=== PATIENT | female | born 1985 | race Caucasian/White ===

== ENCOUNTER 2020-02-26 22:50 | Emergency (ER) | payer BC, OTHER, SELFPAY ==
--- NOTE | ~2020-02-26 | CT_ITS ---
EXAMINATION: CTA chest PE protocol EXAM DATE: 02/27/2020 01:27 INDICATION: Midsternal chest pain and shortness of breath. TECHNIQUE: Spiral CTA of the chest (pulmonary arteries) was performed with 100 cc Omnipaque 350 intr avenous contrast injection. Images were acquired during the arterial phase. Coronal maximum intens ity projection 3D-reconstructions were created by the technologist on dedicated workstation. Axial, coronal and sagittal reformatted images were reviewed. Initial scan was essentially nondiagnostic for pulmonary embolism due to bolus timing, patient was reinjected and rescanned with another injection of 100 cc Omnipaque 350 solution for a total of 200 cc. The dose-length product (DLP) for this examin ation was 1028.46 mGy-cm. The exposure was tailored according to patient size (auto mA exposure con trol), and iterative reconstruction (ASIR) was used as additional dose reduction technique. There is no prior study for comparison. FINDINGS: Pulmonary arteries are well opacified and without intraluminal filling defects. No thora cic aortic dissection. The lungs are clear. There are no pleural or pericardial effusions. Trach eobronchial tree is patent. There is no mediastinal, hilar or axillary lymphadenopathy. There is no pneumothorax. Heart normal in size. No evidence of coronary arterial calcification. Upper abd omen is unremarkable. There is thoracic spondylosis without osteoblastic or osteolytic lesions iden tified. IMPRESSION: 1. No pulmonary emboli or acute findings. Reviewed, dictated and finalized at location A.
[2020-02-26 22:52] VITALS: BP 130/82; PULSE 111; RESP 20; TEMP 36.7; O2SAT 100
[2020-02-26 23:33] LABS: Basophils Percent Auto 0.3 % (0.2-1.2); Eosinophils Absolute Auto 0.1 K/mm3 (0-0.3); Eosinophils Percent Auto 1.2 % (0-4.4); Hemoglobin 12.9 g/dL (12.0-15.0); Immature Granulocyte Absolute 0.03 K/mm3 (0.00-0.031); Immature Granulocyte Percent A 0.3 % (0-0.5); Lymphocytes Absolute Auto 4.37 K/mm3 (0.9-3.2); Lymphocytes Percent Auto 38.9 % (18.3-44.2); Mean Corpuscular HGB Conc 33.9 g/dl (32-36); Mean Corpuscular Hemoglobin 28.1 pg (26-34); Mean Corpuscular Volume 82.8 fl (80-100); Mean Platelet Volume 9.8 fl (7.4-10.4); Monocytes Percent Auto 9.2 % (2.6-8.5); Neutrophils Absolute Auto 5.6 K/mm3 (1.3-6.7); Neutrophils Percent Auto 50.1 % (45.5-73.1); Platelet Count Result 273 k/mm3 (150-375); Red Blood Count 4.59 M/mm3 (4.2-5.4); Red Cell Distribution Width 12.5 % (11.5-14.5); White Blood Count 11.2 K/mm3 (4.5-10.0)
[2020-02-26] MEDS: MORPHINE SULFATE 4 MG/ML INJ IV PUSH (23:43)
[2020-02-26 23:45] LABS: Anion Gap 9 mmol/L (8-16); Blood Urea Nitrogen 14 mg/dL (7-17); Carbon Dioxide 24 mmol/L (22-30); Chloride 103 mmol/L (98-107); Estimated CRCL calculation 80 ml/min; Estimated Glomerular Filt Rate > 60; Glucose 115 mg/dL (65-105); Potassium 3.5 mmol/L (3.4-5.0); Sodium 136 mmol/L (137-145)
[2020-02-26 23:58] LABS: NT Pro B Type Natriuretic Pept 37 PG/ML (5-100); Troponin I < 0.012 ng/mL (0.000-0.034)
[2020-02-27 00:28] LABS: Add Urine Microscopic? NO; Appearance Urine Clear (Clear); Bacteria Urine Trace /hpf; Bilirubin Urine Negative (Negative); Blood Urine Negative (Negative); Color Urine Yellow (Yellow); Glucose Urine UA Negative (Negative); Ketones Urine Negative (Negative); Leukocyte Esterase Ur Negative LEU/UL (Negative); Mucus Urine Rare /lpf; Nitrate Urine Negative (Negative); Protein Urine Negative (Negative); RBC Urine 0-2 /hpf (0-2); Squamous Epithelial Cell Urine Moderate /hpf (Few); Urobilinogen Urine Negative mg/dL (<2.0); WBC Urine 0-3 /hpf
[2020-02-27 00:54] VITALS: BP 121/69; PULSE 89; RESP 18; O2SAT 99
--- NOTE | 2020-02-27 01:27 | ED.CHESTPAIN ---
HPI - Chest Pain General Chief Complaint: Chest Pain Stated Complaint: chest pain History of Present Illness HPI narrative: Patient is a 34-year-old female who presents the ER with sudden onset left-sided chest pain. Anterior chest wall inferior to the breast. Is worse with deep breath. Is not worsened by movement. No worsening with palpation. Reports she was lying in bed when symptoms began. No known trauma or injury. Denies runny nose/sore throat/productive cough. No history of coronary disease. Related Data Home Medications Medication Instructions Recorded Confirmed lorazepam 1 mg tablet 1 mg PO TID PRN 06/30/19 02/26/20 tramadol 50 mg tablet 50 mg PO Q6H PRN 06/30/19 02/26/20 Allergies Allergy/AdvReac Type Severity Reaction Status Date / Time Penicillins Allergy Unknown Unknown Verified 02/26/20 23:47 Review of Systems Review of Systems: All systems reviewed & are unremarkable except as noted in HPI and below Constitutional: Constitutional: Denies chills and Denies fever(s) ENT: Denies nasal congestion and Denies sore throat Cardiovascular: Cardiovascular: Reports chest pain, Denies rapid heart rate and Denies radiating jaw, neck or arm pain Respiratory: Respiratory: Denies cough, Denies dyspnea and Denies wheezing Comments: Pain with deep breath Gastrointestinal: Gastrointestinal: Denies abdominal pain, Denies nausea and Denies vomiting PMFSH Past Medical History Medical History (Updated 02/27/20 @ 02:51 by Danny Diaz MD) Anxiety Essential (primary) hypertension Mixed hyperlipidemia Surgical History Surgical History (Updated 02/27/20 @ 01:31 by Danny Diaz MD) History of appendectomy History of section History of tonsillectomy Social History Social History Smoking status: Never smoker Alcohol intake: current Gender identity (if verbalized by the patient): Female Exam Narrative: Exam Narrative: GENERAL: Well-appearing, well-nourished, and in mild distress. HEAD: Normocephalic, atraumatic. ENT: Mucous membranes moist. CHEST: Clear to auscultation. No respiratory distress. HEART: Tachycardic and regular. Normal peripheral pulses. ABDOMEN: Soft, nontender, nondistended. EXTREMITIES: Normal range of motion. No edema. SKIN: Warm, dry, no rash. NEURO: Alert and oriented x3. PSYCH: Normal mood and affect. Course Course Emergency Course: Patient informed of results. Chest pain-free. No PE. Troponin negative x2. Vital Signs Vital signs: Vital Signs Temperature 98.0 F 02/26/20 22:52 Pulse Rate 111 H 02/26/20 22:52 Respiratory Rate 20 02/26/20 22:52 Blood Pressure 130/82 02/26/20 22:52 Pulse Oximetry 100 02/26/20 22:52 Temperature 98.0 F 02/26/20 22:52 Pulse Rate 89 02/27/20 00:54 Respiratory Rate 18 02/27/20 00:54 Blood Pressure 121/69 02/27/20 00:54 Pulse Oximetry 99 02/27/20 00:54 MDM - Chest Pain Lab Data Result diagrams: 02/26/20 23:25 02/26/20 23:25 Labs: Lab Results 02/26/20 02/26/20 02/27/20 Range/Units 23:25 23:25 00:01 WBC 11.2 H (4.5-10.0) K/mm3 RBC 4.59 (4.2-5.4) M/mm3 Hgb 12.9 (12.0-15.0) g/dL Hct 38.0 (37.0-47.0) % MCV 82.8 (80-100) fl MCH 28.1 (26-34) pg MCHC 33.9 (32-36) g/dl RDW 12.5 (11.5-14.5) % Plt Count 273 (150-375) k/mm3 MPV 9.8 (7.4-10.4) fl Immature Gran % (Auto) 0.3 (0-0.5) % Neut % (Auto) 50.1 (45.5-73.1) % Lymph % (Auto) 38.9 (18.3-44.2) % Sierra % (Auto) 9.2 H (2.6-8.5) % Eos % (Auto) 1.2 (0-4.4) % Baso % (Auto) 0.3 (0.2-1.2) % Lymph # (Auto) 4.37 H (0.9-3.2) K/mm3 Sierra # (Auto) 1.0 H (0.1-0.6) K/mm3 Eos # (Auto) 0.1 (0-0.3) K/mm3 Baso # (Auto) 0.0 (0.0-0.1) K/mm3 Abs Immat Gran (auto) 0.03 (0.00-0.031) K/mm3 Absolute Neuts (auto) 5.6 (1.3-6.7) K/mm3 Absolute Nucleated RBC 0.0 (0
[2020-02-27 02:43] LABS: Troponin I < 0.012 ng/mL (0.000-0.034)
[2020-02-27 03:33] VITALS: BP 121/74; PULSE 82; RESP 18; O2SAT 98
== END 2020-02-27 03:36 | disposition home or self-care (01) ==
PROVIDERS: Emergency Provider Emergency Medicine; PCP Family Medicine
DX: R07.89 Other chest pain (principal); F41.9 Anxiety disorder, unspecified; I10 Essential (primary) hypertension; E78.2 Mixed hyperlipidemia
CPT/HCPCS: 36415; 71275; 80048; 81003; 83880; 84484; 85025; 96374; 99284; J2270; Q9967

== ENCOUNTER 2020-05-02 13:35 | Emergency (ER) | payer BC, OTHER, SELFPAY ==
--- NOTE | ~2020-05-02 | XR_ITS ---
XR hip RT 2V w AP pelvis 05/02/2020 14:52 INDICATION: Right hip pain. PROCEDURE: AP pelvis and 2 views right hip COMPARISON: CT dated 09/30/2016. FINDINGS: Fracture, dislocation or subluxation is not identified. There is a loose body lateral to th e right hip which was present on prior CT examination in 2017. Sacral foramen are symmetric. Pelvic r ings are intact. The soft tissues appear within normal limits. No foreign bodies are identified. IMPRESSION: 1: NO ACUTE BONE OR JOINT ABNORMALITY IDENTIFIED. Reviewed, dictated and finalized at location A. EM SUPPORT ADMINISTRATOR
[2020-05-02 13:39] VITALS: BP 123/72; PULSE 102; RESP 18; TEMP 36.6; O2SAT 99
--- NOTE | 2020-05-02 14:12 | ED.BACK ---
HPI - Back Pain/Injury General Chief Complaint: Back Pain/Injury Stated Complaint: hip pain Time Seen by Provider: 05/02/20 14:02 Source: RN notes reviewed History of Present Illness HPI Narrative: Patient presents to emergency department from home for right leg pain. Patient states that she has a history of sciatica for the past 5 years. She states she was sitting in a chair and was having aching in her right hip when she had jumped out of the chair she thought her daughter got outside. States she did she got to the top of the stairs she had had a searing pain going her right buttocks region into her right groin with continued pain in the right hip. Patient states she tried taking ibuprofen at home with no relief. States that she is had no fevers or chills abdominal pain numbness or tingling in the extremity bowel or bladder incontinence or any other symptoms. Denies any direct trauma or injury Related Data Allergies Allergy/AdvReac Type Severity Reaction Status Date / Time Penicillins Allergy Unknown Unknown Verified 05/02/20 13:46 Review of Systems Review of Systems: Narrative: Gen.: Denies fevers or chills ENT: Denies congestion Respiratory: Denies shortness of breath or cough CV: Denies chest pain or palpitations GI: Denies abdominal pain nausea, emesis or diarrhea denies bowel or bladder incontinence Musculoskeletal: See HPI Neuro: Denies numbness, tingling, weakness or focal weakness Skin: Denies rash Except as documented, all other systems reviewed and negative PMFSH Past Medical History Medical History Anxiety Essential (primary) hypertension Mixed hyperlipidemia Surgical History Surgical History (Updated 02/27/20 @ 01:31 by Danny Diaz MD) History of appendectomy History of section History of tonsillectomy Social History Social History Smoking status: Never smoker Alcohol intake: current Gender identity (if verbalized by the patient): Female Exam Narrative: Exam Narrative: APPEARANCE: No acute distress, nontoxic, resting in bed Eyes: EOMI HEENT: Normocephalic, atraumatic, CV: Regular rate and rhythm without murmur RESPIRATORY: No respiratory distress. Clear to auscultation bilaterally. Abdomen: Soft and nontender, no rebound or guarding no tenderness in right lower quadrant MUSCULOSKELETAl: Moves all extremities, no clubbing cyanosis or edema no tenderness to palpation over the anterior lateral hip, pain with active flexion of the hip greater than 30 degrees with passive range of motion no pain with flexion of the hip but when the hip is flexed to greater than 45 degrees passively and the leg is brought back down pain in the right anterior and lateral hip patient is able to hold up the leg on her own the right lower extremity is neurovascular intact with a dorsalis pedis pulse of 2+ no overlying erythema in the right groin no hernia Back: No midline lumbar tenderness to palpation or step-off, tender to palpation over right piriformis region NEURO: Awake and alert. Following commands, speech normal, no focal deficits, muscle strength 5 out of 5 bilateral lower extremities, bilateral patellar reflex 2+ SKIN:: Warm, dry. Normal Color no rash or lesions Course Course Emergency Course: Patient is able to walk on the leg in her room but notes pain with ambulation Discussed with patient results of workup and diagnosis. Discussed need for follow-up with primary care, proper use of medication, and reasons to return to the emergency department. Patient understands and agrees to current treatment plan Vital Signs Vital signs: Vital Signs Temperature 97.9 F 05/02/20 13:39 Pulse Rate 102 H 05/02/20 13:39 Respiratory Rate 18 05/02/20 13:39 Blood Pressure 123/72 05/02/20 13:39 Pulse Oximetry 99 05/02/20 13:39 Temperature 97.9 F 05/02/20 13:39 Pulse Rate 102 H
[2020-05-02] MEDS: MORPHINE SULFATE (*CRX) 4 MG/ML INJ IM (14:17)
== END 2020-05-02 15:50 | disposition home or self-care (01) ==
PROVIDERS: Emergency Provider Emergency Medicine; PCP Family Medicine
DX: M54.31 Sciatica, right side (principal); E78.2 Mixed hyperlipidemia; I10 Essential (primary) hypertension
CPT/HCPCS: 73502; 96372; 99283; J2270

== ENCOUNTER → 2021-02-03 10:43 | Outpatient (CLI) | payer BC, OTHER, SELFPAY ==
--- NOTE | ~2021-02-03 | MR_ITS ---
EXAMINATION: MR knee LT wo con DATE: 02/03/2021 12:05 INDICATION: Left knee pain post fall 3 years prior TECHNIQUE: Magnetic resonance imaging (MRI) of the left knee was performed without intravenous contra st. Sequences included coronal PD-weighted FSE, coronal PD-weighted FS FSE, sagittal T2-weighted FSE , sagittal PD-weighted FS FSE and axial PD weighted fat saturated FSE. COMPARISON: Left knee radiographs dated 07/01/2019 FINDINGS: Medial compartment: Medial meniscus is normal. Deep, likely full/near full-thickness chondral fissuring with underlying s ubarticular edema at the anterior weightbearing medial femoral condyle. Cartilage at the medial tibia l plateau and along the central to posterior weightbearing medial femoral condyle remains normal. Lateral compartment: Lateral meniscus is normal. Articular cartilage is normal. Patellofemoral compartment: Distal . Chondral fissure involving greater than 50% the cartilage thickness but without degenerative subchondral changes at the central aspect of the medial patellar facet. Chondral ulceration and deep fissuring with underlying cortical irregularity and minimal cortical edema at the inferior aspect of the medial trochlea. Cartilage at the lateral side of the patellofemoral compartment is normal. Ligaments and tendons: Anterior and posterior cruciate ligaments are normal. The medial collateral ligament and fibular jazmín ateral ligament complex are normal. The extensor mechanism is normal. The visualized medial and later al hamstring tendons as well as the iliotibial band are normal. Fluid: Small left knee joint effusion. No loose osteochondral bodies identified. Osseous/other: No fracture or pathologic marrow replacing process. Small bone island at the proximal tibia. IMPRESSION: 1. 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 Moderate to high-grade chondromalacia at the medial patellar facet. 2. Normal menisci, stabilizing ligaments and tendons . 3. Small likely reactive left knee joint effusion. Reviewed, dictated and finalized at location A. IMPRESSION: 1. 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 Moderate to high-grade chondroma lacia at the medial patellar facet. 2. Normal menisci, stabilizing ligaments and tendons . 3. Small likely reactive left knee joint effusion.
== END ==
PROVIDERS: PCP Family Medicine; Visit Provider Nurse Practitioner Family
DX: M25.562 Pain in left knee (principal); M25.462 Effusion, left knee
CPT/HCPCS: 73721

== ENCOUNTER 2021-09-29 08:50 | Outpatient (CLI) | payer BC, OTHER, SELFPAY ==
--- NOTE | 2021-09-29 | ECG_ITS ---
Measurements Intervals [place] Rate: 73 P: 52 OR: 146 QRS: 20 QRSD: 86 T: -1 QT: 374 QTc: 413 Interpretive Statements SINUS RHYTHM NORMAL ECG NO PREVIOUS ECG AVAILABLE FOR COMPARISON Electronically Signed On 09-29-2021 15:41:56 CDT by Sancho Burkett M.D.
== END 2021-09-29 08:51 | disposition home or self-care (01) ==
LOC: ANHCARD 08:53
PROVIDERS: PCP Family Medicine; Visit Provider Obstetrics & Gynecology
DX: R00.2 Palpitations (principal)
CPT/HCPCS: 93005

== ENCOUNTER 2021-10-05 13:23 | Outpatient (CLI) | payer BC, OTHER, SELFPAY ==
--- NOTE | ~2021-10-05 | XR_ITS ---
EXAM: XR lumbar spine 2-3V HISTORY: M54.50 - Low back pain, unspecified, radiates to both legs COMPARISON: X-ray lumbar spine 03/27/2016. FINDINGS: 5 nonrib-bearing lumbar-type vertebral bodies with intact pedicles. Vertebral body heights and disc spaces are maintained. No fracture or traumatic malalignment. No lytic or blastic lesion. M ild facet hypertrophy in the lower lumbar spine. Normal sacroiliac joints. IMPRESSION: Mild lower lumbar facet arthropathy. Reviewed, dictated and finalized at location K.
== END 2021-10-05 13:24 | disposition home or self-care (01) ==
PROVIDERS: PCP Family Medicine; Visit Provider Physician Assistant Medical
DX: M54.50 Low back pain, unspecified (principal)
CPT/HCPCS: 72100

== ENCOUNTER 2021-10-27 08:48 | Emergency (ER) | payer BC, OTHER, SELFPAY ==
--- NOTE | ~2021-10-27 | US_ITS ---
EXAMINATION: US pelvic complete w TV DATE: 10/27/2021 10:09 INDICATION: Bilateral pelvic pain. TECHNIQUE: Multiple transabdominal and transvaginal sonographic images of the pelvis were obtained. COMPARISON: CT abdomen and pelvis 09/30/2016 FINDINGS: TRANSABDOMINAL ULTRASOUND: The uterus measures 10.3 x 6.5 x 4.5 cm. There is no free fluid in the pelvis. TRANSVAGINAL ULTRASOUND: The endometrial complex measures 8 mm in thickness. The right ovary measures 3.1 x 2.9 x 1.4 cm. The left ovary measures 2.9 x 2.6 x 1.4 cm. There is normal vascular flow in the ovaries. There are promi nent periuterine veins. IMPRESSION: 1. Prominent periuterine veins, consistent with pelvic venous insufficiency. Reviewed, dictated and finalized at location A.
[2021-10-27 09:00] VITALS: BP 128/85; PULSE 92; RESP 16; TEMP 36.8; O2SAT 100
[2021-10-27 09:09] LABS: Basophils Percent Auto 0.6 % (0.2-1.2); Eosinophils Percent Auto 0.6 % (0-4.4); Hematocrit 40.1 % (37.0-47.0); Immature Granulocyte Absolute 0.01 K/mm3 (0.00-0.031); Immature Granulocyte Percent A 0.2 % (0-0.5); Lymphocytes Absolute Auto 2.18 K/mm3 (0.9-3.2); Lymphocytes Percent Auto 35.4 % (18.3-44.2); Mean Corpuscular HGB Conc 32.4 g/dl (32-36); Mean Corpuscular Hemoglobin 26.5 pg (26-34); Mean Corpuscular Volume 81.7 fl (80-100); Mean Platelet Volume 9.4 fl (7.4-10.4); Monocytes Absolute Auto 0.6 K/mm3 (0.1-0.6); Monocytes Percent Auto 9.1 % (2.6-8.5); Neutrophils Absolute Auto 3.3 K/mm3 (1.3-6.7); Neutrophils Percent Auto 54.1 % (45.5-73.1); Platelet Count Result 290 k/mm3 (150-375); Red Blood Count 4.91 M/mm3 (4.2-5.4); Red Cell Distribution Width 12.9 % (11.5-14.5); White Blood Count 6.2 K/mm3 (4.5-10.0)
[2021-10-27 09:14] LABS: Add Urine Microscopic? YES; Appearance Urine Cloudy (Clear); Bilirubin Urine Negative (Negative); Blood Urine 1+ (Negative); Color Urine Yellow (Yellow); Glucose Urine UA Negative (Negative); Ketones Urine Negative (Negative); Leukocyte Esterase Ur Negative LEU/UL (Negative); Mucus Urine Few /lpf; Nitrate Urine Negative (Negative); Protein Urine Negative (Negative); Specific Grav Ur 1.023 (1.001-1.035); Squamous Epithelial Cell Urine Occasional /hpf (Few); Urobilinogen Urine Negative mg/dL (<2.0); WBC Urine 0-3 /hpf
--- NOTE | 2021-10-27 09:17 | ED.ABDPAIN ---
HPI - Abdominal Pain General Chief Complaint: Abdominal Pain Stated Complaint: lower abd pain Time Seen by Provider: 10/27/21 08:54 Source: patient Limitations: no limitations History of Present Illness HPI narrative: 36 y/o female presents to the ER today for complaints of bilateral pelvic pain. She says that it is severe cramping and radiates into her back. She says that she started her period and that the pain is associated with her period. She had some oral ibuprofen this morning at home with no relief. She has had problems with painful periods ever since she started having children but seems to be getting worse and is much worse with this cycle than she has ever had in the past. 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 She says that her mother had endometriosis. She has had ovarian cysts before. She is , denies concern for STDs. She has not had any dysuria or other urinary symptoms. No fever or chills. No n/v/d. Related Data Allergies Allergy/AdvReac Type Severity Reaction Status Date / Time Penicillins Allergy Unknown Unknown Verified 10/05/21 12:40 Review of Systems Constitutional: Constitutional: Denies chills, Denies fatigue, Denies fever(s) and Denies weakness Eyes: Eyes: Reports no additional eye complaints ENT: Denies dysphagia, Denies dizziness and Denies sore throat Cardiovascular: Cardiovascular: Denies chest pain Respiratory: Respiratory: Denies chest congestion, Denies cough and Denies dyspnea Gastrointestinal: Gastrointestinal: Reports abdominal pain, Denies bloating, Denies constipation, Denies diarrhea, Denies nausea and Denies vomiting Genitourinary: Genitourinary: Denies abnormal vaginal bleeding, Denies nocturia, Denies dysuria and Reports pelvic pain Musculoskeletal: Musculoskeletal: Reports back pain and Denies arthralgias Integumentary/Breasts: Skin/Breast: Reports system reviewed and no additional complaints, except as docu Neurologic: Denies dizziness, Denies headache(s), Denies numbness and Denies weakness Psychiatric: Psychiatric: Denies anxiety and Denies depression Endocrine: Endocrine: Denies fatigue Hematologic/Lymphatic: Hematologic/Lymphatic: Denies easy bleeding and Denies easy bruising Allergic/Immunologic: Allergic/Immunologic: Reports no additional allergic/immunologic complaints PMFSH Past Medical History Medical History Abnormal MRI, knee Adult BMI 37.0-37.9 kg/sq m Anxiety Essential (primary) hypertension Mixed hyperlipidemia Surgical History Surgical History History of appendectomy History of section History of tonsillectomy Social History Social History Alcohol intake: current Substance use: never Substance use type: does not use Gender identity (if verbalized by the patient): Female Exam Const: General: healthy appearing, no acute distress and alert Orientation/consciousness: patient oriented x3 HENMT: Head: normal to inspection Eyes: Conjunctivae: conjunctivae normal Chest: Chest palpation & inspection: normal inspection of the chest Resp: Effort & Inspection: normal respiratory effort Auscultation: clear to auscultation bilaterally Cardio: Rate: regular rate Rhythm: regular rhythm GI: GI Palp: Yes Soft to palpation, No Tenderness to palpation present (GI) and No Guarding due to palpation present (GI) Auscultation: normal bowel sounds : General: Yes no CVA tenderness Skin: General skin exam: normal color Neuro: General: patient oriented x3 and moves all extremities Extrem: General: normal to inspection Psych: Mental Status: mental status grossly normal Affect: normal affect Attitude: cooperative Course Reevaluation(s) Reevaluation #1: Pt reports very good pain relief with toradol given
[2021-10-27 09:24] LABS: Alanine Aminotransferase 13 U/L (4-35); Albumin Level 4.6 g/dL (3.5-5.1); Alkaline Phosphatase 78 U/L (38-126); Anion Gap 9 mmol/L (8-16); Aspartate Amino Transferase 27 U/L (14-36); Bilirubin,Total 0.3 mg/dL (0.2-1.3); Blood Urea Nitrogen 10 mg/dL (7-17); Calcium 8.8 mg/dL (8.4-10.2); Carbon Dioxide 27 mmol/L (22-30); Chloride 103 mmol/L (98-107); Estimated CRCL calculation 77 ml/min; Estimated Glomerular Filt Rate > 60; Glucose 108 mg/dL (65-110); Lipase 73 U/L (23-300); Potassium 3.8 mmol/L (3.4-5.0); Sodium 139 mmol/L (137-145)
[2021-10-27] MEDS: KETOROLAC 30 MG/ML VIAL (*BKC) IV PUSH (09:25)
[2021-10-27] MEDS: SODIUM CHLORIDE 0.9% IV 1,000 ML 999 ML IV CONT (09:26)
--- NOTE | 2021-10-27 09:30 | PC.NURSE ---
Patient to ultrasound.
[2021-10-27 09:40] VITALS: BP 141/92; PULSE 85; RESP 16; O2SAT 98
[2021-10-27 09:55] VITALS: TEMP 36.8
[2021-10-27 11:45] VITALS: BP 114/81; PULSE 79; RESP 18; O2SAT 100
== END 2021-10-27 11:47 | disposition home or self-care (01) ==
PROVIDERS: Emergency Medicine; Emergency Provider Nurse Practitioner Family; PCP Family Medicine
DX: N94.6 Dysmenorrhea, unspecified (principal); N94.89 Other specified conditions associated with female genital organs and menstrual cycle; I10 Essential (primary) hypertension; E78.2 Mixed hyperlipidemia
CPT/HCPCS: 36415; 76830; 76856; 80053; 81001; 81025; 83690; 85025; 96361; 96374; 99284; J1885; J7030

== ENCOUNTER 2021-11-11 08:03 | Outpatient (CLI) | payer BC, OTHER, SELFPAY ==
[2021-11-11 08:49] LABS: Cholesterol 212 mg/dL (0-200); HDL Direct 43 mg/dL; Triglycerides 164 mg/dL (<150)
[2021-11-11 09:00] LABS: LDL Cholesterol Direct 130 mg/dL
[2021-11-14 14:28] LABS: Testosterone Free 2.5 pg/mL (0.1-6.4); Testosterone Total 16 ng/dL (2-45)
[2021-11-17 16:07] LABS: Estrogen 302.7 pg/mL
== END 2021-11-11 08:04 | disposition home or self-care (01) ==
LOC: ANHLAB 08:06
PROVIDERS: PCP Family Medicine; Visit Provider Physician Assistant Medical
DX: E78.2 Mixed hyperlipidemia (principal); L65.9 Nonscarring hair loss, unspecified; R63.5 Abnormal weight gain
CPT/HCPCS: 36415; 80061; 82672; 84402; 84403; 84443

== ENCOUNTER 2022-02-24 08:43 | Outpatient (CLI) | payer BC, OTHER, SELFPAY | END 2022-02-24 08:44 | disposition home or self-care (01) | PROVIDERS: PCP Family Medicine; Visit Provider Obstetrics & Gynecology | DX: R10.2 Pelvic and perineal pain (principal) | CPT/HCPCS: 36415; 86850; 86900; 86901 ==

== ENCOUNTER 2022-03-03 00:47 | Day surgery (SDC) | payer BC, OTHER, SELFPAY ==
[2022-02-22 14:32] VITALS: BMI 36.8
--- NOTE | 2022-02-22 14:41 | PC.NURSE ---
Report to the Outpatient Waiting Room, entrance under the green pavilion located off [facility], at time 12:30 on date 03/03/22. OR Time: 2:30. - You and your visitor will be asked to self-screen and do not enter if you have any COVID symptoms. - Only one visitor and NO children visitors are allowed at this time. - The patient visitor is requested to leave or wait in car when not with patient due to restrictions. - A mask is required within the hospital. Patients may have clear liquids (water, carbonated beverages, clear teas, apple juice) until 3 hours prior to surgery (11:30) with a maximum of 20 ounces. - No food from midnight until time of surgery Take the following medications with a SIP of water the morning of surgery: BUPROPION, METOPROLOL, LORAZEPAM (IF NEEDED) Medications to discontinue per physician: N/A Date to take last dose: N/A Please no make-up, nail martiniquais, hairspray, perfume, deodorant, or body powder the day of surgery. No jewelry (including any body piercings) or valuables the day of surgery, leave them at home. Please take a shower or bath the night before, or the morning of, surgery with an antibacterial soap. Wear comfortable, loose fitting clothing. - Jewelry must be removed prior to entering the operating room. Rings and piercings that are not removed may be cut off. - The hospital will not accept responsibility for valuables. - Please leave all valuables, including medications, at home the day of surgery. If you are going home after surgery, a licensed trash collector truck driver must drive you home. - NO public transportation without another adult. - We recommend that an adult stay with you for 24 hours following discharge. - We also recommend that you do not drive, make important decision, drink alcoholic beverages, or take any drugs that were not prescribed by your health care provider for at least 24 hours after your discharge time. Follow any additional instructions given to you from your surgeon. If you or anyone in your household have experienced Covid symptoms in the past week, please notify your surgeon or the nurse liaison at the phone number below for possible testing. Telephone instructions given to PT - FARNAZ ARORA and asked if any additional questions and then verbalized understanding. Patient advised to call surgeon office or pre surgery nurse liaison [phone] if any additional questions.
--- NOTE | 2022-03-01 07:48 | PM.IMHP ---
H&P: HPI History of Present Illness Date/Time: 03/01/22 07:48 Chief Complaint: Pelvic pain Narrative: This is a 36-year-old 2 para 2 status post x2 and appendectomy as well who is admitted for diagnostic laparoscopy. She has pain discomfort dyspareunia. She has been taking antibiotics anti-inflammatory medication and this has not been improved has fairly retroverted uterus and the pain has been going on for at least a year. Risks and benefits of this procedure reviewed PMFSH Past Medical History Medical History Abnormal MRI, knee Adult BMI 37.0-37.9 kg/sq m Anxiety BMI greater than 30 Essential (primary) hypertension Mixed hyperlipidemia Surgical History Surgical History History of appendectomy History of section History of tonsillectomy Social History Social History Years smoked: 5 Smoking status: Former smoker Tobacco type: cigarettes Smoking end date: 07/02/11 Alcohol intake: never Substance use: never Substance use type: does not use Gender identity (if verbalized by the patient): Female Spiritual care concerns: No Meds Home Medications and Allergies Home Medications Medication Instructions Recorded Confirmed Type omeprazole 20 mg capsule,delayed 20 mg PO BID #60 caps 09/08/20 02/22/22 Rx release lorazepam 1 mg tablet (Ativan) 1 mg PO BID PRN Anxiety #10 tabs 01/07/21 02/22/22 Rx bupropion HCl 300 mg 24 hr tablet, 300 mg PO QAM #90 tabs 10/26/21 02/22/22 Rx extended release (Wellbutrin XL) metoprolol tartrate 25 mg tablet 25 mg PO BID #60 tabs 01/22/22 02/22/22 Rx Allergies Allergy/AdvReac Type Severity Reaction Status Date / Time Penicillins Allergy Unknown Unknown Verified 02/22/22 14:30 Exam Const: General: cooperative, healthy appearing and comfortable Nutritional Appearance: average body habitus and well nourished Orientation/consciousness: oriented to person, oriented to place and oriented to time Chest: Chest palpation & inspection: normal inspection of the chest Resp: Effort & Inspection: normal respiratory effort Cardio: Rate: regular rate Rhythm: regular rhythm Heart sounds: S1 normal heart sound present and S2 normal heart sound present GI: Inspection: normal to inspection and obesity : External Female Exam: normal external appearance Speculum Exam - Vagina: normal appearance of the vagina Speculum Exam - Cervix: normal appearance of the cervix Bimanual exam- vagina & uterus: enlarged and Uterus displaced retroverted Bimanual Exam- Adnexa, other: normal adnexae Assessment and Plan Assessment and plan (1) BMI greater than 30: Status: Acute (2) Pelvic pain: Code(s): R10.2 - Pelvic and perineal pain Status: Acute Plan Diagnostic laparoscopy
[2022-03-03] VITALS (7 sets, daily range): BP systolic 98–126; BP diastolic 56–76; PULSE 78–99; RESP 12–18; TEMP 36.2–36.9; O2SAT 100
--- NOTE | 2022-03-03 06:32 | WPDHPUPDATE1 ---
History and Physical Update Update Date/Time: 03/03/22 06:32 History and Physical has been reviewed, including an updated exam of the patient. There are NO changes in the patient's condition. Risks, benefits, and alternatives have been discussed and questions answered. Patient agrees to proceed with procedure.
[2022-03-03] MEDS: ACETAMINOPHEN 500 MG TABLET 1000 MG PO (12:07)
[2022-03-03] MEDS: KETOROLAC 15 MG/ML VIAL (*BKC) IV PUSH (12:18)
[2022-03-03] MEDS: LACTATED RINGERS 1,000 ML 30 ML IV CONT ×2 (12:19→14:47)
--- NOTE | 2022-03-03 12:29 | P.PNAN_ITS ---
Anes - Initial Pre Proc Eval Procedure: Operation Date: 03/03/22 13:30 Proposed Procedures p Diagnostic Laparoscopy - Casey Ponce MD Date/Time: 03/03/22 12:29 Surgeon: Casey Ponce MD Pre Op Diagnosis: Pelvic Pain Patient Data Age: 36 Gender: F Height: 1.55 m Weight: 89.15 kg Last Vital Signs Temp 36.9 C 03/03/22 11:50 Pulse 87 03/03/22 11:50 Resp 16 03/03/22 11:50 BP 126/76 03/03/22 11:50 Pulse Ox 100 03/03/22 11:50 O2 Del Method Room Air 03/03/22 11:50 Allergies Allergy/AdvReac Type Severity Reaction Status Date / Time Penicillins Allergy Intermediate Rash Verified 03/03/22 12:02 Home Medications Medication Instructions Recorded Confirmed Type omeprazole 20 mg capsule,delayed 20 mg PO BID #60 caps 09/08/20 02/22/22 Rx release lorazepam 1 mg tablet (Ativan) 1 mg PO BID PRN Anxiety #10 tabs 01/07/21 02/22/22 Rx bupropion HCl 300 mg 24 hr tablet, 300 mg PO QAM #90 tabs 10/26/21 03/03/22 Rx extended release (Wellbutrin XL) metoprolol tartrate 25 mg tablet 25 mg PO BID #60 tabs 01/22/22 03/03/22 Rx hydrocodone 5 mg-acetaminophen 325 1 tablet PO Q4H PRN pain #30 tabs 03/03/22 Rx mg tablet Patient hx anesthesia problems: none Family hx anesthesia problems: none Results Review: All pre-operative results and documents have been reviewed as part of the pre- operative evaluation. [facility]LY [facility] Past Medical History Medical History (Updated 03/03/22 @ 12:31 by Erik Somers MD) Abnormal MRI, knee Adult BMI 37.0-37.9 kg/sq m Anxiety Anxiety BMI greater than 30 Chronic narcotic use Essential (primary) hypertension Mixed hyperlipidemia Surgical History Surgical History History of appendectomy History of section History of tonsillectomy Social History Social History Years smoked: 5 Smoking status: Former smoker Tobacco type: cigarettes Smoking end date: 07/02/11 Alcohol intake: never Substance use: never Substance use type: does not use Living arrangements: with family Gender identity (if verbalized by the patient): Female Spiritual care concerns: No Anes - Eval Final PreProcedure Day of Procedure 03/03/22 12:29 Patient weight: obese Heart: regular rate and rhythm Lungs: clear to auscultation and normal air movement Airway: Mallampati scale class II Neurological: alert and oriented Last oral intake: >/= 8 hours ASA classification: III Emergent: no Anesthetic plan: proceed Anesthesia type and monitoring: general ETT Results Review: All pre-operative results and documents have been reviewed as part of the pre- operative evaluation. Informed Consent: The patient's anesthetic plan and its attendant risks and benefits were discu ssed with the patient/family/POA. Questions were solicited and answers provided to the satisfaction of the patient/family/POA.
--- NOTE | 2022-03-03 13:37 | W.PM.PROC2 ---
Procedure Note - Detailed Date of Procedure 03/03/22 Pre-op Diagnosis Pelvic Pain Post-op Diagnosis Other (Endometriosis and pelvic adhesions) Procedure Performed Laparoscopic destruction of endometriosis and lysis of adhesions Surgeon aCsey Ponce MD Anesthesia General Indications Set 36-year-old female who has had couple previous sections with severe pelvic pain Findings Uterus was markedly anterior to the abdominal wall and this was brought down. Adhesions were seen from the ovaries to the anterior abdominal wall. Small area of powder burn endometriosis along the left uterosacral ligament and blistered endometriosis implant on the right uterosacral Description of Procedure Patient was prepped draped in the normal sterile fashion placed in the dorsal lithotomy position. Under excellent general trach anesthesia weighted speculum placed in posterior fornix vagina. Anterior lip of the cervix grasped with single-tooth tenaculum and the Batres's cannula inserted to the cervix. This was attached to the single-tooth and then the weighted speculum was removed. The bladder emptied of clear urine. The gloves were changed. A supraumbilical incision made the Veress needle passed in the abdomen. Abdomen filled with CO2 gas [id number]. The 5mm trocar advanced under direct visualization assuring no injury. Multiple adhesions in the above findings were seen. There was a large amount of adhesions from the omentum to the anterior abdominal wall this was sharply dissected to help with visualization. Once this had been accomplished the adhesions from the uterus to the anterior abdominal wall were sharply dissected and the uterus was markedly more mobile at that point. A small area of powder burn endometriosis seen along the left uterosacral ligament was cauterized at 35 w per 2nd as was a blistered area along the right uterosacral. No other abnormalities were seen. Photo documentation was undertaken. The lower site removed. The gas removed from the abdomen. These trocars were removed and the incisions closed with 4 Monocryl glue. Blood loss was estimated at5cc. All sponge, needle, instrument counts were correct. There were no immediate complications Estimated Blood Loss 5 Drains No Packing No Pathology None sent Complications No immediate complications Condition Stable Disposition PACU
--- NOTE | 2022-03-03 14:23 | SUR.PHASEI ---
1420: Simple mask removed.
[2022-03-03] MEDS: fentaNYL CITRATE INJ (*CRX) 100 MCG/2 ML VIAL 25 MCG IV PUSH ×2 (14:33→14:36)
== END 2022-03-03 15:40 | disposition home or self-care (01) ==
PROVIDERS: PCP Family Medicine; Visit Provider Obstetrics & Gynecology
PROC: (CPT 49320; principal; 2022-03-03 13:30)
DX: R10.2 Pelvic and perineal pain (principal); N73.6 Female pelvic peritoneal adhesions (postinfective); N80.3 Endometriosis of pelvic peritoneum; N94.10 Unspecified dyspareunia; I10 Essential (primary) hypertension; E78.2 Mixed hyperlipidemia; F41.9 Anxiety disorder, unspecified; Z79.891 Long term (current) use of opiate analgesic; Z87.891 Personal history of nicotine dependence; E66.9 Obesity, unspecified; Z68.37 Body mass index [BMI] 37.0-37.9, adult
CPT/HCPCS: 58662; A9270; J0330; J1100; J1885; J2250; J2405; J2704; J3010; J7030; J7120

== ENCOUNTER 2022-07-25 13:22 | Outpatient (CLI) | payer BC, OTHER, SELFPAY ==
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
== END 2022-07-25 13:23 | disposition home or self-care (01) ==
PROVIDERS: PCP Family Medicine; Visit Provider Physician Assistant Medical
DX: M54.2 Cervicalgia (principal); V89.2XXA Person injured in unspecified motor-vehicle accident, traffic, initial encounter
CPT/HCPCS: 72040

== ENCOUNTER 2022-10-06 03:48 | Emergency (ER) | payer BC, OTHER, SELFPAY ==
[2022-10-06] VITALS (12 sets, daily range): BP systolic 105–135; BP diastolic 76–114; PULSE 96–101; RESP 16–20; TEMP 36.4–37; O2SAT 98–100
[2022-10-06 04:08] LABS: Basophils Percent Auto 0.3 % (0.2-1.2); Eosinophils Absolute Auto 0.2 K/mm3 (0-0.3); Eosinophils Percent Auto 2.6 % (0-4.4); Hematocrit 40.5 % (37.0-47.0); Hemoglobin 13.2 g/dL (12.0-15.0); Immature Granulocyte Absolute 0.03 K/mm3 (0.00-0.031); Immature Granulocyte Percent A 0.4 % (0-0.5); Lymphocytes Absolute Auto 2.32 K/mm3 (0.9-3.2); Lymphocytes Percent Auto 29.2 % (18.3-44.2); Mean Corpuscular HGB Conc 32.6 g/dl (32-36); Mean Corpuscular Hemoglobin 26.8 pg (26-34); Mean Corpuscular Volume 82.2 fl (80-100); Mean Platelet Volume 9.3 fl (7.4-10.4); Monocytes Absolute Auto 0.7 K/mm3 (0.1-0.6); Monocytes Percent Auto 9.1 % (2.6-8.5); Neutrophils Absolute Auto 4.6 K/mm3 (1.3-6.7); Neutrophils Percent Auto 58.4 % (45.5-73.1); Platelet Count Result 264 k/mm3 (150-375); Red Blood Count 4.93 M/mm3 (4.2-5.4); Red Cell Distribution Width 13.2 % (11.5-14.5); White Blood Count 7.9 K/mm3 (4.5-10.0)
[2022-10-06 04:20] LABS: Alanine Aminotransferase 19 U/L (6-35); Albumin Level 4.9 g/dL (3.5-5.1); Alkaline Phosphatase 84 U/L (38-126); Anion Gap 10 mmol/L (8-16); Aspartate Amino Transferase 22 U/L (14-36); Bilirubin,Total 0.6 mg/dL (0.2-1.3); Blood Urea Nitrogen 11 mg/dL (7-17); Calcium 9.6 mg/dL (8.4-10.2); Carbon Dioxide 26 mmol/L (22-30); Chloride 104 mmol/L (98-107); Estimated CRCL calculation 69 ml/min; Estimated Glomerular Filt Rate > 60; Glucose 110 mg/dL (65-110); Lipase 55 U/L (23-300); Potassium 3.9 mmol/L (3.4-5.0); Sodium 140 mmol/L (137-145)
[2022-10-06] MEDS: SODIUM CHLORIDE 0.9% IV 2,000 ML 999 ML IV CONT (06:03)
[2022-10-06] MEDS: ONDANSETRON INJ 4 MG/2 ML VIAL IV PUSH (06:05)
[2022-10-06] MEDS: FAMOTIDINE 20 MG/2 ML VIAL IV PUSH (06:06)
--- NOTE | 2022-10-06 06:16 | ED.GENADULT ---
HPI - General Adult General Chief complaint: Abdominal Pain Stated complaint: epigastric pain, nausea, vomiting, taking wegovy Time Seen by Provider: 10/06/22 04:14 History of Present Illness HPI narrative: This is a 37-year-old female presenting ED with chief complaint of nausea vomiting diarrhea. The patient has recently been started on will go V for weight loss. She was taking a starter dose and was having some nausea and vomiting but is tolerable. Last week she was increased to a higher dose and has been having nausea vomiting and diarrhea since then. She has been able to drink some liquids. today she has some burning in the epigastric area that is associated with vomiting. It is nonradiating, 5 out 10 intensity and constant. The patient has taken Zofran with some improvement but is not taking anything for diarrhea. Related Data Allergies Allergy/AdvReac Type Severity Reaction Status Date / Time Penicillins Allergy Intermediate Rash Verified 10/06/22 04:53 PMFSH Past Medical History Medical History Abnormal MRI, knee Adult BMI 37.0-37.9 kg/sq m Anxiety Anxiety BMI 36.0-36.9,adult BMI 38.0-38.9,adult BMI greater than 30 Chronic narcotic use Essential (primary) hypertension Mixed hyperlipidemia Surgical History Surgical History History of appendectomy History of section History of tonsillectomy Social History Social History Years smoked: 5 Smoking status: Former smoker Tobacco type: cigarettes Smoking end date: 07/02/11 Alcohol intake: never Substance use: never Substance use type: does not use Living arrangements: with family Gender identity (if verbalized by the patient): Female Spiritual care concerns: No Exam Narrative: APPEARANCE: No apparent distress. polite and friendly during the interview Head: atraumatic. EYES: EOMI, NOSE: Atraumatic NECK: Trachea midline RESPIRATORY: No increased rate of breathing, clear to auscultation CARDIOVASCULAR: RRR, ABDOMINAL: soft nontender with no guarding or rebound MUSCULOSKELETAl: No obvious deformities NEURO: Alert. Moving 4/4 extremities SKIN:: Warm, dry. Normal color PSYCHIATRIC: Normal affect Course Vital Signs Vital signs: Vital Signs Temperature 97.6 F 10/06/22 03:52 Pulse Rate 101 H 10/06/22 03:52 Respiratory Rate 20 10/06/22 03:52 Blood Pressure 127/95 H 10/06/22 03:52 Pulse Oximetry 100 10/06/22 03:52 Oxygen Delivery Room Air 10/06/22 03:52 Temperature 98.6 F 10/06/22 04:51 Pulse Rate 96 10/06/22 04:51 Respiratory Rate 16 10/06/22 04:51 Blood Pressure 130/87 10/06/22 04:51 Pulse Oximetry 100 10/06/22 04:51 Oxygen Delivery Room Air 10/06/22 03:52 Medical Decision Making MDM Narrative Medical decision making narrative: -Presentation: 37-year-old female presenting with nausea vomiting diarrhea after upping the dose of her wegovy -DDX includes but is not limited to: Medication side effect, gastroenteritis -Co-morbidities complicating care: Wegovy use, anxiety -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 Metabolic panel is normal. Lipase was not elevated. Dx tests considered but not ordered: -Procedures: -Interventions: 2 L normal saline, Zofran, Pepcid, Imodium -Shared decision making / Disposition: upon re-evaluation patient's vital signs are normal. Her abdominal exam is still benign. Patient will be discharged with prescriptions for Zofran and Imodium. She has been instructed follow-up with primary care physician to decrease her dose or consider cessation of Wegovy.
[2022-10-06 06:39] LABS: Appearance Urine Turbid (Clear); Bacteria Urine 3+ /hpf; Bilirubin Urine Negative (Negative); Blood Urine Negative (Negative); Calcium Oxalate Crystals Urine Present /hpf; Color Urine Yellow (Yellow); Glucose Urine UA Negative (Negative); Ketones Urine Negative (Negative); Leukocyte Esterase Ur Negative LEU/UL (Negative); Nitrate Urine Negative (Negative); Protein Urine Negative (Negative); Specific Grav Ur 1.023 (1.001-1.035); Squamous Epithelial Cell Urine Moderate /hpf (Few); Urobilinogen Urine 0.2 mg/dL (<2.0)
[2022-10-06 06:40] LABS: Add Urine Microscopic? YES
== END 2022-10-06 06:35 | disposition home or self-care (01) ==
PROVIDERS: Emergency Provider Emergency Medicine; PCP Family Medicine
DX: R11.2 Nausea with vomiting, unspecified (principal); T50.995A Adverse effect of other drugs, medicaments and biological substances, initial encounter; I10 Essential (primary) hypertension; E78.2 Mixed hyperlipidemia; Z87.891 Personal history of nicotine dependence
CPT/HCPCS: 36415; 80053; 81001; 81025; 83690; 85025; 87086; 87088; 96374; 96375; 99284; J2405; J7030

== ENCOUNTER 2022-10-17 11:06 | Emergency (ER) | payer BC, OTHER, SELFPAY ==
--- NOTE | ~2022-10-17 | XR_ITS ---
Left Knee Technique: AP, lateral, and oblique views were obtained. Clinical History: Pain Findings: No fracture or dislocation is seen. Osseous alignment is anatomic. Joint spaces are preserv ed without degenerative or erosive change. Soft tissues are unremarkable. No joint effusion is seen. Impression: Unremarkable left knee radiographs. Reviewed, dictated and finalized at location . Impression: Unremarkable left knee radiographs.
--- NOTE | 2022-10-17 11:13 | ED.LOWEXIN ---
HPI - Extremity Injury (Lower) General Chief Complaint: Extremity Injury, Lower Stated Complaint: INJURED L KNEE Time Seen by Provider: 10/17/22 11:50 Source: patient and RN notes reviewed Mode of arrival: ambulatory Limitations: no limitations History of Present Illness HPI Narrative: 37-year-old female presents with concern for left knee injury. Reports when she was playing softball last night she hyper flexed the knee causing pain, slight swelling. She reports pain worsens with weight-bearing in the feels stiff. She reports she took ibuprofen. MD complaint: knee injury Related Data Allergies Allergy/AdvReac Type Severity Reaction Status Date / Time Penicillins Allergy Intermediate Rash Verified 10/17/22 11:39 Review of Systems Review of Systems: CONSTITUTIONAL: Denies malaise, chills, sweats, or fever. SKIN: Denies rash or itching, open skin, laceration, abrasion, redness, warmth, swelling. MUSCULOSKELETAL: Reports left knee pain NEUROLOGIC: Denies numbness, weakness All systems reviewed & are unremarkable except as noted in HPI and below PMFSH Past Medical History Medical History Abnormal MRI, knee Adult BMI 37.0-37.9 kg/sq m Anxiety Anxiety BMI 36.0-36.9,adult BMI 38.0-38.9,adult BMI greater than 30 Chronic narcotic use Essential (primary) hypertension Mixed hyperlipidemia Surgical History Surgical History History of appendectomy History of section History of tonsillectomy Social History Social History Years smoked: 5 Smoking status: Former smoker Tobacco type: cigarettes Smoking end date: 07/02/11 Alcohol intake: never Substance use: never Substance use type: does not use Living arrangements: with family Gender identity (if verbalized by the patient): Female Spiritual care concerns: No Comments At time of signature, agree with nursing past medical, surgical, social and family history. There is no relevant family history pertinent to the presenting complaint Exam Narrative: GENERAL: Well-appearing, well-nourished, and in no acute distress. HEAD: Normocephalic, atraumatic. EYES: PERRLA, conjunctivae clear NECK: Supple. CHEST: Speaks in full sentences. No respiratory distress. HEART: Regular rate and rhythm. Normal and equal peripheral pulses. EXTREMITIES: Left knee has normal sensation, limited range of motion likely due to pain. Mild medial edema, no erythema, warmth, ecchymosis. Normal sensation with sensitivity to light touch and pain. Medial tenderness. No open wounds, no skin tenting, no devitalized tissue or atrophy, no trophic changes, no obvious deformity, alignment normal, nearby joints and structures intact. Distal pulses palpable and equal bilaterally, skin warm, dry, pink. Capillary refill less than 3 seconds. Lever test negative SKIN: Warm, dry, no rash. NEURO: Alert and oriented x3. PSYCH: Normal mood and affect Course Course Emergency Course: Patient is aware of diagnosis, understands and agrees to treatment plan. Anticipatory guidance given. Patient agrees to follow-up as directed and is aware of reasons to seek care at the emergency department. Portions of this record may have been created with voice recognition software Level of Care: Express Care Visit Vital Signs Vital signs: Reviewed. MDM - Extremity Injury (Lower) MDM Narrative Medical decision making narrative: Patients injury and pain is consistent with musculoskeletal etiology. No signs of neurological or vascular compromise on exam. Compartments and tissues are soft without signs of compartment syndrome. Pain is felt appropriate for further evaluation on an outpatient basis. Imaging Data My impression: Images reviewed, interpreted by radiologist, agree, see report. Radiologist's impression: Left Knee Technique: AP, la
[2022-10-17 11:20] VITALS: BP 121/84; PULSE 84; RESP 16; TEMP 36.9; O2SAT 100
== END 2022-10-17 12:03 | disposition home or self-care (01) ==
PROVIDERS: Emergency Provider Nurse Practitioner; PCP Family Medicine
DX: S83.92XA Sprain of unspecified site of left knee, initial encounter (principal); X50.9XXA Other and unspecified overexertion or strenuous movements or postures, initial encounter; Y93.64 Activity, baseball; I10 Essential (primary) hypertension; E78.2 Mixed hyperlipidemia; Z87.891 Personal history of nicotine dependence
CPT/HCPCS: 73562; 99213; G0463

== ENCOUNTER 2022-12-19 08:01 | Outpatient (CLI) | payer BC, OTHER, SELFPAY ==
--- NOTE | ~2022-12-19 | MM_ITS ---
EXAMINATION: MM screening shahla BI w irvin HISTORY: Screening mammogram TECHNIQUE: Craniocaudal and mediolateral oblique 3-D tomosynthesis images were obtained and synthetic 2-D images were generated. CAD analysis was submitted and interpreted. COMPARISON: No prior mammogram is available for comparison at this institution. BREAST PARENCHYMAL COMPOSITION: There are scattered areas of fibroglandular density. FINDINGS: There is no evidence of suspicious mass, calcification, or architectural distortion to sugg est malignancy in either breast. There has been no suspicious interval change. IMPRESSION: 1. No mammographic evidence of malignancy. 2. Recommend routine screening mammography in one year. BI-RADS Category 1: Negative Reviewed, dictated and finalized at location A.
== END 2022-12-19 08:02 | disposition home or self-care (01) ==
LOC: ANHIMG 08:06
PROVIDERS: PCP Family Medicine; Visit Provider Obstetrics & Gynecology
DX: Z12.31 Encounter for screening mammogram for malignant neoplasm of breast (principal)
CPT/HCPCS: 77063; 77067

== ENCOUNTER 2023-04-03 17:20 | Emergency (ER) | payer BC, OTHER, SELFPAY ==
--- NOTE | ~2023-04-03 | XR_ITS ---
EXAMINATION: XR knee LT 3V DATE: 04/03/2023 17:37 INDICATION: Posterior left knee pain. TECHNIQUE: 3 views of left knee were obtained. COMPARISON: Left knee radiographs 10/17/2022 FINDINGS: Bone alignment is normal. No fracture. There is mild osteoarthritis of medial and patellofe moral compartments characterized by tiny osteophytes. There is a small knee joint effusion. IMPRESSION: 1. Mild left knee osteoarthritis. 2. Small left knee joint effusion. Reviewed, dictated and finalized at location E.
--- NOTE | 2023-04-03 17:27 | ED.LOWEXIN ---
HPI - Extremity Injury (Lower) General Chief Complaint: Extremity Injury, Lower Stated Complaint: L KNEE INJURY Time Seen by Provider: 04/03/23 17:28 Source: patient, RN notes reviewed and old records reviewed Mode of arrival: ambulatory Limitations: no limitations History of Present Illness HPI Narrative: 37-year-old female presents to the [facility] with complaints of posterior left knee pain after running Pain posteriorly. Has a history of knee issues and the same knee but usually anterior. Mild swelling noted at the lower medial aspect without ecchymosis. Full range of motion. Tenderness noted to the posterior and lateral aspect of the knee Related Data Allergies Allergy/AdvReac Type Severity Reaction Status Date / Time Penicillins Allergy Intermediate Rash Verified 04/03/23 17:26 Review of Systems Review of Systems: All systems reviewed & are unremarkable except as noted in HPI and below Constitutional: Constitutional: Reports no additional constitutional complaints Eyes: Eyes: Reports no additional eye complaints ENT: Reports system reviewed and no additional complaints, except as documented Cardiovascular: Cardiovascular: Reports no additional cardiovascular complaints, Denies chest pain and Denies dyspnea Respiratory: Respiratory: Reports no additional respiratory complaints, Denies chest congestion, Denies cough and Denies dyspnea Gastrointestinal: Gastrointestinal: Reports no additional gastrointestinal complaints, Denies abdominal pain, Denies nausea and Denies vomiting Musculoskeletal: Musculoskeletal: Reports as per HPI Integumentary/Breasts: Skin/Breast: Reports system reviewed and no additional complaints, except as docu Neurologic: Reports system reviewed and no additional complaints, except as documented Psychiatric: Psychiatric: Reports no additional psychiatric complaints Allergic/Immunologic: Allergic/Immunologic: Reports no additional allergic/immunologic complaints [facility] Past Medical History Medical History Abnormal MRI, knee Anxiety Anxiety BMI 34.0-34.9,adult Essential (primary) hypertension Mixed hyperlipidemia Surgical History Surgical History History of appendectomy History of section History of tonsillectomy Social History Social History Years smoked: 5 Smoking status: Former smoker Tobacco type: cigarettes Smoking end date: 07/02/11 Alcohol intake: never Substance use: never Substance use type: does not use Living arrangements: with family Gender identity (if verbalized by the patient): Female Spiritual care concerns: No Comments At the time of my signature, I reviewed and agree with the nursing past medical, surgical, social, and family history. There is no relevant family history pertinent to the patient complaint. Exam Const: General: cooperative, healthy appearing, comfortable, no acute distress, well developed, alert and well nourished Nutritional Appearance: well nourished Orientation/consciousness: patient oriented x3 Limitations: no limitations HENMT: Head: normal to inspection Ears: hearing grossly normal bilaterally and external ears normal Face/Nose/Sinus: Normal external nose present, Normal nares present, Normal nasal mucous membranes and turbinates present, normal facial exam and face symmetric Face and sinus: normal facial exam and face symmetric Mouth: Yes Normal oral and palatal mucosa present, Yes lip normal and Yes moist mucous membranes Throat: posterior oropharynx normal and uvula midline Eyes: General: appearance normal, both eyes and all related structures Alignment and Position: alignment normal Periorbital: periorbital findings normal Pupils: Equal, round and reactive pupils present EOM: EOMs intact bilaterally Neck: Neck: normal visual inspection, ful
[2023-04-03 17:37] VITALS: BP 129/89; PULSE 77; RESP 16; TEMP 37.1; O2SAT 100
== END 2023-04-03 17:52 | disposition home or self-care (01) ==
PROVIDERS: Emergency Provider Nurse Practitioner; PCP Family Medicine
DX: M25.462 Effusion, left knee (principal); M17.12 Unilateral primary osteoarthritis, left knee; I10 Essential (primary) hypertension; E78.2 Mixed hyperlipidemia; Z87.891 Personal history of nicotine dependence
CPT/HCPCS: 73562; 99213; G0463

== ENCOUNTER 2023-04-25 09:29 | Outpatient (CLI) | payer BC, OTHER, SELFPAY ==
--- NOTE | ~2023-04-25 | MR_ITS ---
MRI of the left knee Clinical history: Pain Technique: Coronal proton density and proton density-weighted images, sagittal proton-density and T2 fat-sat images, and axial proton-density fat-saturated images were acquired. Findings: Anterior and posterior cruciate ligaments are intact. Medial collateral ligament and the la teral collateral ligament complex are intact. Popliteus tendon is intact. There is a radial tear at the posterior root of the medial meniscus. Questionable extension of horizo ntal tear into the posterior horn. No lateral meniscal tear seen. There is patchy moderate chondromalacia throughout the medial femoral condyle. There is mild diffuse chondral thinning in the lateral compartment. There is moderate chondromalacia at the patellar apex. Extensor mechanism is intact. Small joint effusion is present. No Frost's cyst. Impression: Radial tear at the posterior root of the medial meniscus. Questionable extension of horizontal tear i nto the posterior horn. 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 Small joint effusion. Reviewed, dictated and finalized at location . Impression: Radial tear at the posterior root of the medial meniscus. Questionable extensio n of horizontal tear into the posterior horn. 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 Small joint effusion.
== END 2023-04-25 09:30 ==
LOC: GOSHIMG 09:30
PROVIDERS: PCP Family Medicine; Visit Provider Physician Assistant Surgical
DX: S83.242A Other tear of medial meniscus, current injury, left knee, initial encounter (principal); X58.XXXA Exposure to other specified factors, initial encounter; M25.462 Effusion, left knee
CPT/HCPCS: 73721

== ENCOUNTER 2023-07-20 07:33 | Outpatient (CLI) | payer BC, OTHER, SELFPAY ==
--- NOTE | 2023-07-20 08:04 | ECG_ITS ---
Measurements Intervals [place] Rate: 75 P: 59 [place]: 140 QRS: 8 QRSD: 79 T: -6 QT: 361 QTc: 405 Interpretive Statements SINUS RHYTHM BORDERLINE ST-T WAVE ABNORMALITY- INFERIOR LEADS BASELINE ARTIFACT- I, II, III, AVR, AVL, AVF BORDERLINE ECG COMPARED TO ECG 09/29/2021 09:11:27 NO SIGNIFICANT CHANGES Electronically Signed On 07-20-2023 8:16:45 INTERNET WEB[employer]STER by Bryan Restrepo D.O.
== END 2023-07-20 07:34 | disposition home or self-care (01) ==
PROVIDERS: PCP Family Medicine; Visit Provider Orthopaedic Surgery
DX: Z01.818 Encounter for other preprocedural examination (principal); I10 Essential (primary) hypertension; R93.1 Abnormal findings on diagnostic imaging of heart and coronary circulation
CPT/HCPCS: 93005

== ENCOUNTER 2023-08-01 01:43 | Day surgery (SDC) | payer BC, OTHER, SELFPAY ==
[2023-07-13 09:40] VITALS: BMI 33.0
--- NOTE | 2023-07-13 09:44 | PC.NURSE ---
Addendum entered by Becky Evans RN 07/26/23 11:57: PT TO ARRIVE AT 1000 ON 08/01/23 FOR SURGERY AT 1200. PT AWARE TO CONTINUE HOLDING WEGOVY. Addendum entered by Becky Evans RN 07/16/23 14:26: MAY ALSO TAKE METOPROLOL WITH SMALL SIP OF WATER THE MORNING OF SURGERY. Original Note: Report to the Outpatient Waiting Room, entrance under the green pavilion located off [facility], at time 1:00 on date 07/23/23. Planned Procedure Time: 3:00. Time changes happen often and if your time is changed the preop area will call you the afternoon before. - You and your visitor will be asked to self-screen and do not enter if you have any COVID symptoms. - A mask is optional within the hospital at this time. Patients may have clear liquids (water, carbonated beverages, clear teas, apple juice) until 3 hours prior to surgery (12:00) with a maximum of 20 ounces. - No food from midnight until time of surgery Take the following medications with a SIP of water the morning of surgery: BUPROPION, BUSPIRONE DO NOT STOP ANY OF YOUR OTHER PRESCRIPTION MEDICATIONS PRIOR TO SURGERY ?EXCEPT THE FOLLOWING Medications to discontinue per physician: WEGOVY Date to take last dose: PT HAS ALREADY STOPPED Please no make-up, nail lithuanian, hairspray, perfume, deodorant, or body powder the day of surgery. No jewelry (including any body piercings) or valuables the day of surgery, leave them at home. Please take a shower or bath the night before, or the morning of, surgery with an antibacterial soap. Wear comfortable, loose fitting clothing. - Jewelry must be removed prior to entering the operating room. Rings and piercings that are not removed may be cut off. - The hospital will not accept responsibility for valuables. - Please leave all valuables, including medications, at home the day of surgery. If you are going home after surgery, a licensed coach tour driver must drive you home. - NO public transportation without another adult if you receive anesthesia. - We recommend that an adult stay with you for 24 hours following discharge. - We also recommend that you do not drive, make important decision, drink alcoholic beverages, or take any drugs that were not prescribed by your health care provider for at least 24 hours after your discharge time. Follow any additional instructions given to you from your surgeon. If you or anyone in your household have experienced Covid symptoms in the past week, please notify your surgeon or the nurse liaison at the phone number below for possible testing. Telephone instructions given to BELA ARORA and asked if any additional questions and then verbalized understanding. Patient advised to call surgeon office or pre surgery nurse liaison [phone] if any additional questions.
--- NOTE | 2023-07-26 11:58 | PC.NURSE ---
Pt states no changes in medications or health history since initial interview. New pre-op instructions reviewed with pt. Pt denies further questions at this time.
[2023-08-01] VITALS (7 sets, daily range): BP systolic 101–119; BP diastolic 65–83; PULSE 87–104; RESP 12–16; TEMP 36.2–36.3; O2SAT 98–100
--- NOTE | 2023-08-01 10:17 | SUR.PREOP ---
Pt stated she does not need crutch training due to feeling comfortable using crutches.
[2023-08-01] MEDS: KETOROLAC 15 MG/ML VIAL (*BKC) IV PUSH (10:45)
[2023-08-01] MEDS: ACETAMINOPHEN 500 MG TABLET 1000 MG PO (10:45)
--- NOTE | 2023-08-01 11:57 | WPDHPUPDATE1 ---
History and Physical Update Update Date/Time: 08/01/23 11:57 History and Physical has been reviewed, including an updated exam of the patient. There are NO changes in the patient's condition. Risks, benefits, and alternatives have been discussed and questions answered. Patient agrees to proceed with procedure.
--- NOTE | 2023-08-01 11:57 | WPDANESEPPF ---
Anes - Initial Pre Proc Eval Procedure: Operation Date: 08/01/23 12:00 Proposed Procedures p Left Knee Arthroscopy, Meniscus Debridement with Lateral Release and Chondroplasty - Nino Mckeon MD Date/Time: 08/01/23 11:57 Surgeon: Nino Mckeon MD Pre Op Diagnosis: left knee medial meniscus tear Patient Data Age: 37 Gender: F Height: 1.55 m Weight: 84.7 kg Last Vital Signs Temp 36.2 C L 08/01/23 10:29 Pulse 87 08/01/23 10:29 Resp 16 08/01/23 10:29 BP 105/83 08/01/23 10:29 Pulse Ox 100 08/01/23 10:29 O2 Del Method Room Air 08/01/23 10:29 Allergies Allergy/AdvReac Type Severity Reaction Status Date / Time Penicillins Allergy Intermediate Rash Verified 08/01/23 10:14 Home Medications Medication Instructions Recorded Confirmed Type semaglutide (weight loss) 0.5 0.5 mg (0.5 mL) subcut WEEKLY #2 mL 03/05/23 07/26/23 Rx mg/0.5 mL subcutaneous pen injector (Wegovy) bupropion HCl 150 mg 24 hr tablet, 150 mg PO QAM #90 tabs 04/30/23 07/26/23 Rx extended release (Wellbutrin XL) metoprolol tartrate 25 mg tablet See Rx Instructions .Route 06/17/23 07/26/23 Rx .COMPLEX #180 tabs buspirone 7.5 mg tablet See Rx Instructions .Route 07/02/23 07/26/23 Rx .COMPLEX #180 tabs hydrocodone 5 mg-acetaminophen 325 1 - 2 tablet PO Q4-6H PRN pain #30 08/01/23 Rx mg tablet tabs Patient hx anesthesia problems: post op nausea/vomiting Family hx anesthesia problems: post op nausea/vomiting Results Review: All pre-operative results and documents have been reviewed as part of the pre-operative evaluation. [facility] Past Medical History Medical History Abnormal MRI, knee Anxiety Anxiety BMI 34.0-34.9,adult Essential (primary) hypertension Mixed hyperlipidemia Surgical History Surgical History History of appendectomy History of section History of tonsillectomy Social History Social History Years smoked: 5 Smoking status: Former smoker Tobacco type: cigarettes Smoking end date: 07/02/13 Additional smoking assessment comments: FORMER SOC[employer] SMOKER Alcohol intake: never Substance use: never Substance use type: does not use Do You Feel Safe in your Home?: Yes Lack of Transportation: No Lack of Food: Never True Current Housing: I Have Housing Concerned About Future Housing: No Difficulty Paying Gas/Electric Bills: No Difficulty Paying for Meds: No Currently Unemployed: No Education: Master's Degree or Higher Difficulty w/ Childcare or Family Care: No Living arrangements: with family Gender identity (if verbalized by the patient): Female Spiritual care concerns: No Anes - Eval Final PreProcedure Day of Procedure 08/01/23 11:57 Patient weight: obese Heart: regular rate and rhythm Lungs: clear to auscultation Airway: Mallampati scale class II Neurological: alert and oriented Last oral intake: >/= 8 hours ASA classification: III Emergent: no Anesthetic plan: proceed Anesthesia type and monitoring: general LMA and standard monitoring Results Review: All pre-operative results and documents have been reviewed as part of the pre-operative evaluation. Informed Consent: The patient's anesthetic plan and its attendant risks and benefits were discussed with the patient/family/POA. Questions were solicited and answers provided to the satisfaction of the patient/family/POA.
[2023-08-01] MEDS: MIDAZOLAM HCL (*CRX) 2 MG/2 ML VIAL IV PUSH (12:02)
--- NOTE | 2023-08-01 13:34 | W.PM.PROC2 ---
Procedure Note - Detailed Date of Procedure 08/01/23 Pre-op Diagnosis 1. Left knee medial meniscus tear 2. 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 Post-op Diagnosis Other (1. Left knee medial meniscus tear 2. 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 3. Medial synovial plica) Procedure Performed Left knee 1. Arthroscopic partial medial meniscectomy 2. Arthroscopic lateral release with patella and medial femoral chondroplasty and Arthroscopic synovial plica excision. Surgeon Nino Mckeon MD Anesthesia General Findings Significant tightness of the lateral restraints. Central soft spot on the patella very deep. Extensive grade 3/4 chondromalacia along medial femoral condyle impacting the medial patella as well as apparent irritation from a thickened medial patella plica band. Mild grade 1/2 degenerative disease on the medial tibia underneath the meniscus medially. Posterior horn of located good except for the very most lateral aspect of the root which did have a cleavage plane. This was treated with arthroscopic shaver and the radiofrequency probe. Meniscus primarily appeared to be functional and stable. The ACL was normal. The lateral meniscus was normal. The lateral articular cartilage appeared normal. The lateral release was performed with the radiofrequency probe. Good, improved mobility of the patella was confirmed. Medial femur was treated with the shaver and the radiofrequency probe for gentle chondroplasty. Description of Procedure Preoperative antibiotics were given. A general anesthetic was administered. The left leg was prepped and draped in usual sterile fashion. Preoperative examination revealed normal ACL. She did show patella baja and very tight lateral restraints. Standard inferomedial and inferolateral arthroscopic portals were established. Inflow with the saline pump. The ACL and lateral compartments were normal. The medial compartment showed significant high-grade chondromalacia along the strength along the medial femoral condyle as well as a small area tibia. The cartilage was fairly soft. There was some pitting at the central weight-bearing tibial cartilage. Moving into the patellofemoral joint was difficult and a plica was encountered. This was removed with arthroscopic shaver and a. Patellar debridement with the radiofrequency probe was also performed. Patellar tracking appeared to be quite lateral and tight and the lateral release was thus performed with the radiofrequency probe. Care was taken to extend the release from the lateral portal to just distal to the vastus lateralis muscle. The tourniquet was released, and the radiofrequency probe was used to cauterize and hemostasis. There did not appear to be any significant bleeding. The arthroscopic instruments were removed. There were no complications. Wounds were closed with interrupted 3-0 Monocryl suture followed by Steri-Strips. A sterile bulky dressing was applied with a knee immobilizer. Light compressive wrap placed. Estimated Blood Loss 5 Tourniquet Time Total Tourniquet Time: 27 Pathology None sent Complications No immediate complications Condition Stable Disposition PACU [facility] Billing Surgery - Charge Forward: Surgery Billing
[2023-08-01] MEDS: LACTATED RINGERS 1,000 ML 30 ML IV CONT ×2 (13:48→14:15)
== END 2023-08-01 15:40 | disposition home or self-care (01) ==
PROVIDERS: PCP Family Medicine; Visit Provider Orthopaedic Surgery
PROC: (CPT 29870; principal; 2023-08-01 12:00)
DX: S83.242A Other tear of medial meniscus, current injury, left knee, initial encounter (principal); M67.52 Plica syndrome, left knee; M22.42 Chondromalacia patellae, left knee; X50.0XXA Overexertion from strenuous movement or load, initial encounter; Y93.6A Activity, physical games generally associated with school recess, summer camp and children; I10 Essential (primary) hypertension; E78.2 Mixed hyperlipidemia; F41.9 Anxiety disorder, unspecified; Z87.891 Personal history of nicotine dependence; E66.9 Obesity, unspecified; Z68.35 Body mass index [BMI] 35.0-35.9, adult; Z79.85 Long-term (current) use of injectable non-insulin antidiabetic drugs
CPT/HCPCS: 29881; 29873; A9270; J1100; J1170; J1885; J2250; J2405; J2704; J7120; L1830

== ENCOUNTER 2023-11-21 09:34 | Outpatient (CLI) | payer BC, OTHER, SELFPAY ==
[2023-11-21 10:26] LABS: Hematocrit 44.1 % (37.0-47.0); Hemoglobin 14.5 g/dL (12.0-15.0); Mean Corpuscular HGB Conc 32.9 g/dl (32-36); Mean Corpuscular Volume 85.1 fl (80-100); Mean Platelet Volume 9.7 fl (7.4-10.4); Platelet Count Result 300 k/mm3 (150-375); Red Blood Count 5.18 M/mm3 (4.2-5.4); Red Cell Distribution Width 12.4 % (11.5-14.5); White Blood Count 6.2 K/mm3 (4.5-10.0)
[2023-11-21 10:54] LABS: Alanine Aminotransferase 14 U/L (6-35); Albumin Level 5.3 g/dL (3.5-5.1); Alkaline Phosphatase 65 U/L (38-126); Anion Gap 11 mmol/L (4-12); Aspartate Amino Transferase 19 U/L (14-36); Bilirubin,Total 0.9 mg/dL (0.2-1.3); Blood Urea Nitrogen 14 mg/dL (7-17); CRP < 0.5 mg/dL (<1.0); Calcium 9.9 mg/dL (8.4-10.2); Carbon Dioxide 28 mmol/L (22-30); Chloride 103 mmol/L (98-107); Estimated Glomerular Filt Rate > 60; Glucose 92 mg/dL (65-110); Potassium 4.6 mmol/L (3.4-5.0); Sodium 142 mmol/L (137-145)
[2023-11-21 11:41] LABS: Thyroid Stimulating Hormone Reflex 0.745 uIU/mL (0.465-4.68)
[2023-11-21 13:01] LABS: Erythrocyte Sedimentation Rate 10 mm/hr (0-20)
[2023-11-23 17:44] LABS: Immunoglobulin A 158 mg/dL (47-310); TTG IGA AB <1.0 U/mL
== END 2023-11-21 09:35 | disposition home or self-care (01) ==
LOC: ANHLAB 09:38
PROVIDERS: PCP Family Medicine; Visit Provider Nurse Practitioner
DX: R10.9 Unspecified abdominal pain (principal); K21.9 Gastro-esophageal reflux disease without esophagitis; R19.7 Diarrhea, unspecified; Z83.79 Family history of other diseases of the digestive system
CPT/HCPCS: 36415; 80053; 82784; 84443; 85027; 85652; 86140; 86364

== ENCOUNTER 2023-11-30 08:54 | Outpatient (CLI) | payer BC, OTHER, SELFPAY ==
[2023-12-06 19:59] LABS: Calprotectin, Stool 6 mcg/g
== END 2023-11-30 08:55 | disposition home or self-care (01) ==
LOC: ANHLAB 08:56
PROVIDERS: PCP Family Medicine; Visit Provider Nurse Practitioner
DX: R19.7 Diarrhea, unspecified (principal); K21.9 Gastro-esophageal reflux disease without esophagitis; R10.9 Unspecified abdominal pain; Z83.79 Family history of other diseases of the digestive system
CPT/HCPCS: 83993

== ENCOUNTER 2024-03-24 08:08 | Outpatient (CLI) | payer BC, OTHER, SELFPAY ==
--- NOTE | ~2024-03-24 | MM_ITS ---
EXAMINATION: MM screening shahla BI w irvin HISTORY: Screening TECHNIQUE: Craniocaudal and mediolateral oblique 3-D tomosynthesis images were obtained and synthetic 2-D images were generated. CAD analysis was submitted and interpreted. COMPARISON: 11/2022 BREAST PARENCHYMAL COMPOSITION: FINDINGS: There is no evidence of suspicious mass, calcification, or architectural distortion to sugg est malignancy in either breast. There has been no suspicious interval change. IMPRESSION: 1. No mammographic evidence of malignancy. 2. Recommend routine annual screening mammography beginning at age 40. BI-RADS Category 1: Negative Reviewed, dictated and finalized at location B.
== END 2024-03-24 08:09 | disposition home or self-care (01) ==
LOC: ANHIMG 08:10
PROVIDERS: PCP Family Medicine; Visit Provider Obstetrics & Gynecology
DX: Z12.31 Encounter for screening mammogram for malignant neoplasm of breast (principal)
CPT/HCPCS: 77063; 77067

== ENCOUNTER 2024-03-26 15:27 | Outpatient (CLI) | payer BC, OTHER, SELFPAY ==
[2024-03-26 17:14] LABS: Thyroid Stimulating Hormone 0.643 uIU/mL (0.465-4.680)
[2024-03-26 18:16] LABS: Free T4 Free Thyroxine 0.98 ng/mL (0.78-2.19); Vitamin D 25 Hydroxy 73.6 ng/mL
[2024-03-31 15:33] LABS: ANA Cascade Screen NEGATIVE (NEGATIVE)
== END 2024-03-26 15:28 | disposition home or self-care (01) ==
LOC: ANHLAB 15:29
PROVIDERS: PCP Family Medicine
DX: Z13.29 Encounter for screening for other suspected endocrine disorder (principal); E55.9 Vitamin D deficiency, unspecified; Z82.69 Family history of other diseases of the musculoskeletal system and connective tissue; R79.89 Other specified abnormal findings of blood chemistry; L65.9 Nonscarring hair loss, unspecified
CPT/HCPCS: 36415; 82306; 84439; 84443; 86038; 86225; 86235; 86364

== ENCOUNTER 2024-04-02 14:42 | Outpatient (CLI) | payer BC, OTHER, SELFPAY ==
[2024-04-04 08:33] LABS: Thyroid Peroxidase Antibodies 1 IU/mL (<9)
== END 2024-04-02 14:43 | disposition home or self-care (01) ==
PROVIDERS: PCP Family Medicine
DX: R79.89 Other specified abnormal findings of blood chemistry (principal)
CPT/HCPCS: 36415; 86376

== ENCOUNTER 2024-04-15 01:19 | Day surgery (SDC) | payer BC, OTHER, SELFPAY ==
[2024-02-04 09:33] VITALS: BMI 29.0
[2024-03-04 10:56] VITALS: BMI 29.0
--- NOTE | 2024-03-12 11:38 | SUR.PREOP ---
Patients called and said that his Lacey had a training at work and left a message to cancel her procedure. Instructed to call when she is ready to reschedule
[2024-04-15 11:11] VITALS: BP 120/79; PULSE 90; RESP 20; TEMP 36; O2SAT 100
[2024-04-15 11:16] LABS: BEDSIDEPREGUCG Negative (Negative)
[2024-04-15] MEDS: LACTATED RINGERS 1,000 ML 150 ML IV CONT (11:21)
--- NOTE | 2024-04-15 11:50 | WPDANESEPPF ---
Anes - Initial Pre Proc Eval Procedure: Operation Date: 04/15/24 14:30 Proposed Procedures p Esophagogastroduodenoscopy & Colonoscopy - John Boudreaux MD Date/Time: 04/15/24 11:50 Surgeon: John Boudreaux MD Pre Op Diagnosis: Abdominal Pain, Diarrhea, Patient Data Age: 38 Gender: F Height: 1.55 m Weight: 69.8 kg Last Vital Signs Temp 36.0 C L 04/15/24 11:11 Pulse 90 04/15/24 11:11 Resp 20 04/15/24 11:11 BP 120/79 04/15/24 11:11 Pulse Ox 100 04/15/24 11:11 O2 Del Method Room Air 04/15/24 11:11 Allergies Allergy/AdvReac Type Severity Reaction Status Date / Time Penicillins Allergy Intermediate Rash Verified 04/15/24 11:08 Home Medications Medication Instructions Recorded Confirmed Type bupropion HCl 150 mg 24 hr tablet, 150 mg PO QAM #90 tabs 04/30/23 04/15/24 Rx extended release (Wellbutrin XL) metoprolol tartrate 25 mg tablet See Rx Instructions .Route 10/07/23 04/15/24 Rx .COMPLEX #180 tabs buspirone 7.5 mg tablet See Rx Instructions .Route 11/11/23 04/15/24 Rx .COMPLEX #180 tabs valacyclovir 1 gram tablet 2,000 mg PO Q12H PRN blisters 02/04/24 04/15/24 History (Valtrex) semaglutide (weight loss) 1.7 See Rx Instructions .Route 03/24/24 04/15/24 Rx mg/0.75 mL subcutaneous pen .COMPLEX #3 mL injector Laboratory Tests 04/15/24 11:11 POC Urine HCG, Qual Negative (Negative) Patient hx anesthesia problems: none Family hx anesthesia problems: none Results Review: All pre-operative results and documents have been reviewed as part of the pre-operative evaluation. [facility] Past Medical History Medical History Abnormal MRI, knee Anxiety Anxiety BMI 34.0-34.9,adult Essential (primary) hypertension Mixed hyperlipidemia Surgical History Surgical History History of appendectomy History of section History of tonsillectomy Social History Social History Years smoked: 5 Smoking status: Former smoker Tobacco type: cigarettes Smoking end date: 07/02/13 Additional smoking assessment comments: FORMER SOC[employer] SMOKER Alcohol intake: never Substance use: never Substance use type: does not use Do You Feel Safe in your Home?: Yes Lack of Transportation: No Lack of Food: Never True Current Housing: I Have Housing Concerned About Future Housing: No Difficulty Paying Gas/Electric Bills: No Difficulty Paying for Meds: No Currently Unemployed: No Education: Master's Degree or Higher Difficulty w/ Childcare or Family Care: No Living arrangements: with family Gender identity (if verbalized by the patient): Female Spiritual care concerns: No Anes - Eval Final PreProcedure Day of Procedure 04/15/24 11:50 Patient weight: obese Heart: regular rate and rhythm Lungs: clear to auscultation Airway: Mallampati scale class II Neurological: alert and oriented Last oral intake: >/= 8 hours ASA classification: III Emergent: no Anesthetic plan: proceed Anesthesia type and monitoring: general GIVS and standard monitoring Results Review: All pre-operative results and documents have been reviewed as part of the pre-operative evaluation. Informed Consent: The patient's anesthetic plan and its attendant risks and benefits were discussed with the patient/family/POA. Questions were solicited and answers provided to the satisfaction of the patient/family/POA.
--- NOTE | 2024-04-15 12:01 | PM.HPGS ---
History of Present Illness History of Present Illness Consent: Risks, benefits, and alternatives have been discussed and questions answered. Patient agrees to proceed with procedure. Chief complaint: Abdominal Pain, Diarrhea, Narrative: Lacey Joy is a 38 year old female here for first colonoscopy, had egd about 10 years ago with gastritis. She has alternating constipation and diarrhea. Review of Systems Review of Systems: All systems reviewed & are unremarkable except as noted in HPI and below PMFSH Past Medical History Medical History Abnormal MRI, knee Anxiety Anxiety BMI 34.0-34.9,adult Essential (primary) hypertension Mixed hyperlipidemia Surgical History Surgical History History of appendectomy History of section History of tonsillectomy Social History Social History Years smoked: 5 Smoking status: Former smoker Tobacco type: cigarettes Smoking end date: 07/02/13 Additional smoking assessment comments: FORMER SOC[employer] S[employer]KER Alcohol intake: never Substance use: never Substance use type: does not use Do You Feel Safe in your Home?: Yes Lack of Transportation: No Lack of Food: Never True Current Housing: I Have Housing Concerned About Future Housing: No Difficulty Paying Gas/Electric Bills: No Difficulty Paying for Meds: No Currently Unemployed: No Education: Master's Degree or Higher Difficulty w/ Childcare or Family Care: No Living arrangements: with family Gender identity (if verbalized by the patient): Female Spiritual care concerns: No Meds Home Medications and Allergies Home Medications Medication Instructions Recorded Confirmed Type bupropion HCl 150 mg 24 hr tablet, 150 mg PO QAM #90 tabs 04/30/23 04/15/24 Rx extended release (Wellbutrin XL) metoprolol tartrate 25 mg tablet See Rx Instructions .Route 10/07/23 04/15/24 Rx .COMPLEX #180 tabs buspirone 7.5 mg tablet See Rx Instructions .Route 11/11/23 04/15/24 Rx .COMPLEX #180 tabs valacyclovir 1 gram tablet 2,000 mg PO Q12H PRN blisters 02/04/24 04/15/24 History (Valtrex) semaglutide (weight loss) 1.7 See Rx Instructions .Route 03/24/24 04/15/24 Rx mg/0.75 mL subcutaneous pen .COMPLEX #3 mL injector Allergies Allergy/AdvReac Type Severity Reaction Status Date / Time Penicillins Allergy Intermediate Rash Verified 04/15/24 11:08 Vital Signs Vital Signs - 24 hr 04/15/24 11:11 Temperature 96.8 F L Pulse Rate 90 Respiratory Rate 20 Blood Pressure 120/79 Pulse Oximetry 100 Oxygen Delivery Room Air Exam Const: General: comfortable and no acute distress HENMT: Face/Nose/Sinus: Normal nares present Eyes: General: appearance normal, both eyes and all related structures Neck: Neck: no JVD Resp: Auscultation: clear to auscultation bilaterally Cardio: Rate: regular rate Rhythm: regular rhythm GI: Inspection: non-distended GI Palp: Yes Soft to palpation Skin: General skin exam: normal color Neuro: General: gait normal Speech: normal speech Extrem: General: normal to inspection Psych: Mental Status: mental status grossly normal Assessment and Plan Assessment and plan (1) Irritable bowel syndrome with mixed bowel habits: Code(s): K58.2 - Mixed irritable bowel syndrome Status: Acute Assessment and Plan: colonoscopy (2) GERD (gastroesophageal reflux disease): Code(s): K21.9 - Gastro-esophageal reflux disease without esophagitis Status: Acute Assessment and Plan: egd
--- NOTE | 2024-04-15 12:14 | SUR.OPER ---
EGD end 1210 COLONOSCOPY start 1214
[2024-04-15 12:28] VITALS: BP 90/50; PULSE 83; RESP 18; O2SAT 100
[2024-04-15 12:38] VITALS: BP 102/61; PULSE 85; RESP 20; O2SAT 100
[2024-04-15 12:48] VITALS: BP 104/68; PULSE 75; RESP 18; O2SAT 100
== END 2024-04-15 12:54 | disposition home or self-care (01) ==
PROVIDERS: Anesthesiology; PCP Family Medicine; Referring Provider Nurse Practitioner; Visit Provider Internal Medicine Gastroenterology
PROC: 0DJ08ZZ Inspection of Upper Intestinal Tract, Via Natural or Artificial Opening Endoscopic (ICD-10-PCS; CPT 43235; principal; 2024-04-15 14:30)
DX: D12.5 Benign neoplasm of sigmoid colon (principal); K64.8 Other hemorrhoids; K21.9 Gastro-esophageal reflux disease without esophagitis; K58.2 Mixed irritable bowel syndrome; I10 Essential (primary) hypertension; E78.2 Mixed hyperlipidemia; F41.9 Anxiety disorder, unspecified; E66.9 Obesity, unspecified; Z68.29 Body mass index [BMI] 29.0-29.9, adult; Z79.85 Long-term (current) use of injectable non-insulin antidiabetic drugs; Z98.890 Other specified postprocedural states; Z87.891 Personal history of nicotine dependence
CPT/HCPCS: 43239; 45380; 88305; J2003; J2704; J7120

== ENCOUNTER 2024-06-19 09:19 | Emergency (ER) | payer BC, OTHER, SELFPAY ==
--- NOTE | ~2024-06-19 | XR_ITS ---
EXAMINATION: XR chest 2V 06/19/2024 10:24 INDICATION: Fevers. Joint pain. PROCEDURE: 2 view chest COMPARISON: Comparison to multiple prior studies sequentially, with oldest reviewed study dated 06/02. FINDINGS: The lungs are clear. The cardiomediastinal silhouette is within normal limits. There are no pleural effusions. There is no pneumothorax suspected. IMPRESSION: 1: NO ACUTE CARDIOPULMONARY DISEASE. Reviewed, dictated and finalized at location B. 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
[2024-06-19 09:20] VITALS: BP 130/78; PULSE 83; RESP 16; TEMP 36.4; O2SAT 100
[2024-06-19 09:33] VITALS: BP 109/77; PULSE 101; RESP 16; O2SAT 100
[2024-06-19 10:12] VITALS: BP 101/70; PULSE 103; RESP 15; O2SAT 100
[2024-06-19] MEDS: SODIUM CHLORIDE 0.9% IV 1,000 ML 999 ML IV CONT (10:12)
[2024-06-19 10:16] LABS: Influenza A QL RT-PCR Negative (Negative); Influenza B QL RT-PCR Negative (Negative); RSV RNA, RT-PCR Negative (Negative); SARS-CoV-2 RNA PCR Negative (Negative)
[2024-06-19 10:18] LABS: Basophils Percent Auto 0.5 % (0.2-1.2); Eosinophils Absolute Auto 0.1 K/mm3 (0-0.3); Eosinophils Percent Auto 2.1 % (0-4.4); Hematocrit 36.5 % (37.0-47.0); Hemoglobin 12.5 g/dL (12.0-15.0); Immature Granulocyte Absolute 0.03 K/mm3 (0.00-0.031); Immature Granulocyte Percent A 0.8 % (0-0.5); Lymphocytes Absolute Auto 0.85 K/mm3 (0.9-3.2); Lymphocytes Percent Auto 22.7 % (18.3-44.2); Mean Corpuscular HGB Conc 34.2 g/dl (32-36); Mean Corpuscular Hemoglobin 27.7 pg (26-34); Mean Corpuscular Volume 80.9 fl (80-100); Mean Platelet Volume 9.1 fl (7.4-10.4); Monocytes Absolute Auto 0.3 K/mm3 (0.1-0.6); Monocytes Percent Auto 7.5 % (2.6-8.5); Neutrophils Absolute Auto 2.5 K/mm3 (1.3-6.7); Neutrophils Percent Auto 66.4 % (45.5-73.1); Platelet Count Result 255 k/mm3 (150-375); Red Blood Count 4.51 M/mm3 (4.2-5.4); Red Cell Distribution Width 11.9 % (11.5-14.5); White Blood Count 3.8 K/mm3 (4.5-10.0)
[2024-06-19 10:34] LABS: Alanine Aminotransferase 13 U/L (6-35); Albumin Level 4.2 g/dL (3.5-5.1); Alkaline Phosphatase 56 U/L (38-126); Anion Gap 6 mmol/L (4-12); Aspartate Amino Transferase 20 U/L (14-36); Bilirubin,Total 0.5 mg/dL (0.2-1.3); Blood Urea Nitrogen 12 mg/dL (7-17); CRP < 0.5 mg/dL (<1.0); Calcium 8.9 mg/dL (8.4-10.2); Carbon Dioxide 25 mmol/L (22-30); Chloride 107 mmol/L (98-107); Estimated CRCL calculation 75 ml/min; Estimated Glomerular Filt Rate > 60; Glucose 88 mg/dL (65-110); Magnesium 1.9 mg/dL (1.6-2.3); Potassium 3.6 mmol/L (3.4-5.0); Sodium 138 mmol/L (137-145)
[2024-06-19] MEDS: KETOROLAC 30 MG/ML VIAL (*BKC) IV PUSH (10:47)
[2024-06-19 10:49] VITALS: BP 104/67; PULSE 93; RESP 15; O2SAT 100
--- NOTE | 2024-06-19 10:56 | ED_ITS ---
HPI - General Adult General Chief complaint: Skin/Abscess/Foreign Body Stated complaint: rash, hand/neck swelling Time Seen by Provider: 06/19/24 09:25 Source: patient Mode of arrival: ambulatory Limitations: no limitations History of Present Illness HPI narrative: Patient is a 38-year-old female who presents the ED with multiple complaints. Patient reports she woke up yesterday morning not feeling well. She complains of diffuse joint pain and achiness. Complains of pain throughout her ankles, wrist, knees, hips. Has not taken anything for pain. Also reports having a swollen left posterior neck gland, fever yesterday of 100.4? F. denies known fever today. Complains of mild erythematous rash to her hands and feet. Denies itchiness. Denies cough, ST, congestion, SOB, N/V, dizziness/lightheadedness. Does note that her 2 daughters have had pneumonia within the last 2-3 weeks. Related Data Home Medications ?Medication ?Instructions ?Recorded ?Confirmed ?Last Taken ?Type valacyclovir 1 gram tablet 2,000 mg PO Q12H PRN blisters 02/04/24 04/22/24 04/14/24 History (Valtrex) Allergies Allergy/AdvReac Type Severity Reaction Status Date / Time Penicillins Allergy Intermediate Rash Verified 06/19/24 09:29 Review of Systems 2 Review of Systems: All systems reviewed & are unremarkable except as noted in HPI. All systems reviewed & are unremarkable except as noted in HPI and below PMFSH Past Medical History Medical History BMI 34.0-34.9,adult Abnormal MRI, knee Anxiety Anxiety Essential (primary) hypertension Mixed hyperlipidemia Surgical History Surgical History History of section History of appendectomy History of tonsillectomy Social History Social History Years smoked: 5 Smoking status: Former smoker Tobacco type: cigarettes Smoking end date: 07/02/13 Additional smoking assessment comments: FORMER SOC[employer] SMOKER Alcohol intake: never Substance use: never Substance use type: does not use Do You Feel Safe in your Home?: Yes Lack of Transportation: No Lack of Food: Never True Current Housing: I Have Housing Concerned About Future Housing: No Difficulty Paying Gas/Electric Bills: No Difficulty Paying for Meds: No Currently Unemployed: No Education: Master's Degree or Higher Difficulty w/ Childcare or Family Care: No Living arrangements: with family Gender identity (if verbalized by the patient): Female Spiritual care concerns: No Exam 2 Narrative: GENERAL: Well appearing, well-nourished, non-toxic, in no acute distress. HEAD: Normocephalic, atraumatic. NECK: Small palpable minimally tender lymphadenopathy in L posterior cervical chain, freely movable. Mild anterior cervical LAD. RESPIRATORY: Airway patent, respirations nonlabored. Clear to auscultation bilaterally, no rales, rhonchi, wheezing. No focal lung sounds. CARDIOVASCULAR: Regular rate and rhythm without murmurs, rubs, or gallops. MUSCULOSKELETAL: Moves all extremities. No gross deformities. SKIN: Warm, dry, normal color. No appreciable rash. Some splotchiness of dorsal hands. No focal lesions. NEURO: A&O X3. Speech clear. Cranial nerves II-XII grossly intact. Steady gait. No ataxic movements. No focal deficits. PSYCHIATRIC: Appropriate mood and affect. Normal interaction. Course Vital Signs Vital signs: Vital Signs Temperature 97.6 F 06/19/24 09:20 Pulse Rate 83 06/19/24 09:20 Respiratory Rate 16 06/19/24 09:20 Blood Pressure 130/78 06/19/24 09:20 Pulse Oximetry 100 06/19/24 09:20 Oxygen Delivery Room Air 06/19/24 09:20 Temperature 97.9 F 06/19/24 11:26 Pulse Rate 89 06/19/24 11:26 Respiratory Rate 15 06/19/24 11:26 Blood Pressure 107/72 06/19/24 11:26 Pulse Oximetry 100 06/19/24 11:26 Oxygen Delivery Room Air 06/19/24 09:20 Medical Decision Making MDM Narrative Medical decision making narrative: patient presented to ED with diffuse joint pain /achiness, swollen lymph node, fever yesterday. Denies other URI symptoms. Vital signs are stable. Patient is afebrile here. Exam with small focal posterior chain lymphadenopathy, otherwise exam is unremarkable. No appreciable rash. Laboratory studies with mild leukopenia at 3.8. Stable H&H. Stable electrolytes. Normal magnesium. Normal inflammatory markers. Influenza, RSV, COVID negative. Bennett negative. chest x-ray is clear. No evidence of pneumonia. Patient was updated on lab and imaging findings. Discussed likelihood of a viral syndrome, viral URI. Recommended that she continue to monitor symptoms, stay well hydrated at home, continue Tylenol/ ibuprofen as needed for pain/fevers, discussed retesting for COVID/flu in the next few days. Given return precautions. She agrees with plan. Discharged in stable condition. Medical Records Medical records reviewed: Yes I reviewed the external patient's medical records. Vital Signs Vital Signs: Vital Signs Temperature 97.6 F 06/19/24 09:20 Pulse Rate 83 06/19/24 09:20 Respiratory Rate 16 06/19/24 09:20 Blood Pressure 130/78 06/19/24 09:20 Pulse Oximetry 100 06/19/24 09:20 Oxygen Delivery Room Air 06/19/24 09:20 Temperature 97.9 F 06/19/24 11:26 Pulse Rate 89 06/19/24 11:26 Respiratory Rate 15 06/19/24 11:26 Blood Pressure 107/72 06/19/24 11:26 Pulse Oximetry 100 06/19/24 11:26 Oxygen Delivery Room Air 06/19/24 09:20 Lab Data Lab results reviewed: Yes I reviewed the patient's lab results. 06/19/24 10:12 06/19/24 10:12 Labs: Lab Results 06/19/24 06/19/24 Range/Units 09:35 10:12 WBC 3.8 L (4.5-10.0) K/mm3 RBC 4.51 (4.2-5.4) M/mm3 Hgb 12.5 (12.0-15.0) g/dL Hct 36.5 L (37.0-47.0) % MCV 80.9 (80-100) fl MCH 27.7 (26-34) pg MCHC 34.2 (32-36) g/dl RDW 11.9 (11.5-14.5) % Plt Count 255 (150-375) k/mm3 MPV 9.1 (7.4-10.4) fl Immature Gran % (Auto) 0.8 H (0-0.5) % Neut % (Auto) 66.4 (45.5-73.1) % Lymph % (Auto) 22.7 (18.3-44.2) % Bennett % (Auto) 7.5 (2.6-8.5) % Eos % (Auto) 2.1 (0-4.4) % Baso % (Auto) 0.5 (0.2-1.2) % Lymph # (Auto) 0.85 L (0.9-3.2) K/mm3 Bennett # (Auto) 0.3 (0.1-0.6) K/mm3 Eos # (Auto) 0.1 (0-0.3) K/mm3 Baso # (Auto) 0.0 (0.0-0.1) K/mm3 Abs Immat Gran (auto) 0.03 (0.00-0.031) K/mm3 Absolute Neuts (auto) 2.5 (1.3-6.7) K/mm3 Absolute Nucleated RBC 0.000 (0.0-0.012) K/mm3 Nucleated RBC % 0.0 (0.0-0.2) % Sodium 138 (137-145) mmol/L Potassium 3.6 (3.4-5.0) mmol/L Chloride 107 (98-107) mmol/L Carbon Dioxide 25 (22-30) mmol/L Anion Gap 6 (4-12) mmol/L BUN 12 (7-17) mg/dL Creatinine 0.80 (0.7-1.0) mg/dL Estim Creat Clear Calc 75 ml/min Estimated GFR > 60 (59 - ) Glucose 88 (65-110) mg/dL Calcium 8.9 (8.4-10.2) mg/dL Magnesium 1.9 (1.6-2.3) mg/dL Total Bilirubin 0.5 (0.2-1.3) mg/dL AST 20 (14-36) U/L ALT 13 (6-35) U/L Alkaline Phosphatase 56 (38-126) U/L C-Reactive Protein < 0.5 (<1.0) mg/dL Total Protein 7.0 (6.3-8.2) g/dL Albumin 4.2 (3.5-5.1) g/dL Monoscreen Negative (Negative) Influenza A (RT-PCR) Negative (Negative) Influenza B (RT-PCR) Negative (Negative) RSV (RT-PCR) Negative (Negative) SARS-CoV-2 RNA (RT-PCR) Negative (Negative) Imaging Data Attestation: I personally reviewed and interpreted this imaging study as follows: Radiologist's impression: ITS Impressions Chest X-Ray 06/19/24 10:25 IMPRESSION: 1: NO ACUTE CARDIOPULMONARY DISEASE. Discharge Plan Discharge Clinical Impression: Acute viral syndrome, Lymphadenopathy Patient Disposition: Home, Self-Care Condition: Stable Instructions: Antibiotic Form, Lymphadenopathy (ED), Upper Respiratory Infection (ED), Viral Syndrome (ED) Additional Instructions: Your workup here was reassuring. Your chest x-ray did not show any evidence of pneumonia. Your testing for mono, influenza, RSV, COVID was negative. You likely have a viral infection. Stay well-hydrated at home. Recommend electrolyte rich fluids, Gatorade, Pedialyte, body armor. Utilize Tylenol and Ibuprofen for discomfort and/or fevers. Recommend [id number] cough and cold medicines for symptom relief as needed - Delsym, Mucinex, DayQuil, NyQuil, Sudafed, Robitussin, TheraFlu. Follow with primary care doctor for further evaluation. Return to the ED if you experience chest pain, difficulty breathing, unable to keep down food or drink, severe pain, or any other symptoms of concern. Patient Language: Croatian Prescriptions: No Action valacyclovir [Valtrex] 1 gram tablet 2,000 mg PO Q12H PRN (Reason: blisters) bupropion HCl 150 mg tablet extended release 24 hr See Rx Instructions .ROUTE .COMPLEX Qty: 90 3RF Dose Instruction: TAKE 1 TABLET BY MOUTH EVERY MORNING Rx Instructions: TAKE 1 TABLET BY MOUTH EVERY MORNING metoprolol tartrate 25 mg tablet See Rx Instructions .ROUTE .COMPLEX Qty: 180 1RF Dose Instruction: TAKE 1 TABLET BY MOUTH TWICE A DAY Rx Instructions: TAKE 1 TABLET BY MOUTH TWICE A DAY buspirone 7.5 mg tablet See Rx Instructions .ROUTE .COMPLEX Qty: 180 1RF Dose Instruction: TAKE 1 TABLET BY MOUTH TWICE A DAY Rx Instructions: TAKE 1 TABLET BY MOUTH TWICE A DAY hyoscyamine sulfate [Levsin/SL] 0.125 mg tablet, sublingual 0.125 mg sublingual QID Qty: 360 1RF Rx Instructions: 3 month supply if approved by insurance semaglutide (weight loss) 1.7 mg/0.75 mL pen injector See Rx Instructions .ROUTE .COMPLEX Qty: 3 2RF Dose Instruction: INJECT 1 MG (0.5 ML) SUBCUTANEOUSLY EVERY 7 DAYS Rx Instructions: INJECT 1.7 MG (0.75 ML) SUBCUTANEOUSLY EVERY 7 DAYS Follow-up/Referrals: Pankaj Connell MD [Primary Care Provider] - Time of Disposition: 11:14
[2024-06-19 11:09] LABS: Monoscreen Negative (Negative); Negative Monotest Control Negative (Negative); Positive Monotest Control Positive (Positive)
[2024-06-19 11:26] VITALS: BP 107/72; PULSE 89; RESP 15; TEMP 36.6; O2SAT 100
== END 2024-06-19 11:29 | disposition home or self-care (01) ==
PROVIDERS: Emergency Provider Physician Assistant; PCP Family Medicine
DX: B34.9 Viral infection, unspecified (principal); R59.1 Generalized enlarged lymph nodes; Z20.822 Contact with and (suspected) exposure to COVID-19; Z87.891 Personal history of nicotine dependence; F41.9 Anxiety disorder, unspecified; I10 Essential (primary) hypertension; E78.5 Hyperlipidemia, unspecified
CPT/HCPCS: 36415; 71046; 80053; 83735; 85025; 86140; 86308; 87637; 96361; 96374; 99284; J1885; J7030

== ENCOUNTER 2024-06-20 10:40 | Outpatient (CLI) | payer BC, OTHER, SELFPAY ==
[2024-06-20 11:32] LABS: CRP < 0.5 mg/dL (<1.0)
[2024-06-20 11:44] LABS: Erythrocyte Sedimentation Rate 21 mm/hr (0-20)
[2024-06-20 12:00] LABS: Thyroid Stimulating Hormone 0.875 uIU/mL (0.465-4.680)
[2024-06-20 12:18] LABS: Free T4 Free Thyroxine 1.19 ng/dL (0.78-2.19)
[2024-06-23 15:34] LABS: Thyroid Peroxidase Antibodies 1 IU/mL (<9)
[2024-06-24 16:24] LABS: ANA Cascade Screen NEGATIVE (NEGATIVE)
== END 2024-06-20 10:41 | disposition home or self-care (01) ==
LOC: ANHLAB 10:42
PROVIDERS: PCP Family Medicine; Visit Provider Nurse Practitioner Adult Health
DX: M25.50 Pain in unspecified joint (principal); M25.40 Effusion, unspecified joint; Z82.69 Family history of other diseases of the musculoskeletal system and connective tissue
CPT/HCPCS: 36415; 84439; 84443; 85652; 86038; 86140; 86225; 86235; 86364; 86376

== ENCOUNTER 2025-01-26 09:29 | Outpatient (CLI) | payer BC, OTHER, SELFPAY ==
--- OUTSIDE RECORDS SUMMARY | 2025-01-26 09:51 | XMS_ITS | Continuity of Care Document ---
Author Organization [facility] Address [address] [facility] [address] [place] [address] Phone Care Team Providers Care Scanning Manager Name Role Phone Thomas OD, Kenneth Unavailable Unavailable Advance Directives Directive Yes / No Effective Date File Name No Information Encounters Encounter Description Practice Location Reason(s) For Visit Diagnoses Date Provider Providers Copied on Encounter [facility], [address], [place], [place], [id number], [place] tel:[phone] [facility] No Information 3 [phone] Thomas OD Kenneth. [address] , [address], [place], [address], [place]. tel:[phone] Family History Family Member Type Diagnosis Age At Onset No Information Payers Payer name Insurance type Covered democrat ID Authoriza tion(s) No Information Social History Type Description Quantity Date Captured Comments Sex Female Smoking Status No Information Chief Complaint And Reason For Visit No Information Reason For Referral Reason For Referral No Information History Of Present Illness Encounter Date Complaint History Of Prese nt Illness No Information Functional Status Date Functional Assessmen t No Information Instructions Date Instruction Additional Infor mation No Information Assessments Type Assessment Date No Information Patient Care Teams Name Effective Dates (start - stop) Status Members No Information
--- OUTSIDE RECORDS SUMMARY | 2025-01-26 09:51 | XMS_ITS | Clinical Summary ---
Author Organization [address] Address [address] [place] [address] Care Team Providers Care Environmental Health Sanitarian Name Role Phone Pankaj Connell MD Primary Care Provider [phone] Allergies Active Allergy Reactions Criticality Noted Date Comments Penicillins Unknown 12/13/2018 Told had reaction as child. Medications buPROPion XL (WELLBUTRIN XL) 300 mg 24 hr tablet Take 1 tablet (300 mg total) by mouth every morning 05/05/2021 Active metoprolol tartrate (LOPRESSOR) 25 mg immediate release tablet Take 1 tablet (25 mg total) by mouth 2 (two) times a day 06/05/2021 Active Wegovy 1 mg/0.5 mL auto-injector Inject 0.5 mL (1 mg total) under the skin once 09/19/2023 Active busPIRone (BUSPAR) 7.5 mg tablet Take 1 tablet (7.5 mg total) by mouth 2 (two) times a day 08/15/2023 Active Active Problems No known active problems Social History Tobacco Use Types Packs/Day Years Used Date Smoking Tobacco: Never Assessed Comments Unknown Sex and Gender Information Value Date Recorded Sex Assigned at Not on file 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 Gender Identity Not on file Sexual Orientation Not on file Obstetrics History Last Filed Vital Signs Vital Sign Reading Time Taken Comments Blood Pressure 106/75 10/10/2023 7:09 PM CDT Pulse 99 10/10/2023 7:09 PM CDT Temperature 36.7 C (98 F) 10/10/2023 7:09 PM CDT Respiratory Rate 18 10/10/2023 7:09 PM CDT Oxygen Saturation 100% 10/10/2023 7:09 PM CDT Inhaled Oxygen Concentration - - Weight 80.2 kg (176 lb 12.8 oz) 10/10/2023 7:09 PM CDT Height 154.9 cm (5' 0.98) 10/10/2023 7:09 PM CD T Body Mass Index 33.42 10/10/2023 7:09 PM CDT Plan of Treatment Health Maintenance Due Date Last Done Comments Cervical Cancer Screening 1987 Depression Screening 1987 Hepatitis C Screening 1987 DTaP/Tdap/Td Vaccine (1 - Tdap) 09/20/1998 Varicella Vaccines (1 of 2 - 13+ 2-dose series) 09/20/2000 Hepatitis B Screening 09/20/2005 Regular Well Visit/Exam 18-64 09/20/2005 HPV Vaccines (1 - 3-dose SCD M series) 09/20/2014 Covid-19 Vaccine (3 - 2023-2 5 season) 2024 02/20/2021, 01/20/2021 Influenza Vaccine (#1) 2025 Pneumococcal vaccine <65 Aged Out No longer eligible based on patient's age to complete this topic [place] [id number] [employer] HMO/POS [facility] [employer] Member Subscriber Plan / Payer (Ef fective 2022-Present) Name:Rufino Lacey Relation to Subscriber:Self Name:Lacey Joy Payer ID:[id number] (NAIC) Group ID:[id number] Type:[facility] Address: [address] Care Teams Environmental Health Sanitarian Relationship Specialty Start Date End Date Pankaj Connell MD PCP - General Family Medicine 07/04/21
--- OUTSIDE RECORDS SUMMARY | 2025-01-26 09:51 | XMS_ITS | Referral Summary ---
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
--- OUTSIDE RECORDS SUMMARY | 2025-01-26 09:51 | XMS_ITS | Clinical Summary ---
Author Organization [facility] [employer] Address [address] [place] [address] Care Team Providers Care Gate Mortiser Operator Name Role Phone Pankaj Connell MD Primary Care Provider [phone] Source Comments [facility] [employer],non-owned Affiliates and Associated Physician Practices is amultiple site organization consisting of ambulatory clinics and hospital sitesin [place], [place], [place] and [place]. This disclosure is being madepursuant to the Care Everywhere program and may not contain all information available regarding this patient. Last updated 18.[facility] [employer] Allergies Active Allergy Reactions Criticality Noted Date Comments Penicillins Unknown 12/13/2018 Told had reaction as child. Medications * Be aware that medications may not be up to date on this document. Alwaysverify current medications with the patient. METOPROLOL SUCCINATE PO Active busPIRone (Buspar) 7.5 MG tablet Take 1 (one) tablet by mouth 2 times daily Active Wegovy 1.7 MG/0.75ML pen Inject 1.7 mg subcutaneously every 7 days 4 Active hyoscyamine (Levsin SL) 0.125 MG sublingual tablet Dissolve 1 (one) tablet under the tongue every 4 hours as needed 4 Active Active Problems No known active problems Social History Tobacco Use Types Packs/Day Years Used Date Smoking Tobacco: Never Smokeless Tobacco: Never Alcohol Use Standard Drinks/Week Comments Never 0 (1 standard drink = 0.6 oz pur e alcohol) Comments No Sex and Gender Information Value Date Recorded Sex Assigned at Not on file 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 Gender Identity Not on file Sexual Orientation Not on file Last Filed Vital Signs Vital Sign Reading Time Taken Comments Blood Pressure 120/72 12/13/2018 3:47 PM CDT Pulse 94 12/13/2018 3:47 PM CDT Temperature 37.2 C (98.9 F) 12/13/2018 3:47 PM CDT Respiratory Rate 16 12/13/2018 3:47 PM CDT Oxygen Saturation 98% 12/13/2018 3:47 PM CDT Inhaled Oxygen Concentration - - Weight 90.7 kg (200 lb) 12/13/2018 3:47 PM CDT Height 154.9 cm (5' 1) 12/13/2018 3:47 PM CDT Body Mass Index 37.79 12/13/2018 3:47 PM CDT Plan of Treatment Health Maintenance Due Date Last Done Comments HIV SCREENING 09/20/2002 HEPATITIS C SCREENING 09/16/2005 DTAP/TDAP/TD VACCINES (1 - Tdap) 09/20/2006 HEPATITIS B VACCINE (1 of 3 - 19+ 3-dose series) 09/20/2006 PAP SMEAR 09/20/2008 HPV VACCINE (1 - 3-dose SCDM series) 09/20/2014 COVID-19 VACCINE (1 - 2023-2 5 season) 2024 DEPRESSION SCREENING 07/02/2024 INFLUENZA VACCINE (#1) 2025 ZOSTER VACCINE (1 of 2) 09/20/2037 HIB VACCINE Aged Out No longer eligi ble based on patient's age to complete this topic MENINGOCOCCAL (Group B) VACC INE SHARED DECISION-MAKING Aged Out No longer eligibl e based on patient's age to complete this topic MENINGOCOCCAL GROUPS A/C/Y/W VACCINE Aged Out No longer eligible b ased on patient's age to complete this topic PNEUMOCOCCAL VACCINE Aged Out No long er eligible based on patient's age to complete this topic Insurance [employer] Care Teams Gate Mortiser Operator Relationship Specialty Start Date End Date Pankaj Connell MD [address] [place] [address] PCP - General 08/22/11
[2025-01-26 10:50] LABS: Hematocrit 37.4 % (37.0-47.0); Hemoglobin 12.5 g/dL (12.0-15.0); Immature Granulocyte Percent A 0.4 % (0-0.5); Lymphocytes Absolute Auto 2.05 K/mm3 (0.9-3.2); Mean Corpuscular HGB Conc 33.4 g/dl (32-36); Mean Corpuscular Hemoglobin 28.0 pg (26-34); Mean Corpuscular Volume 83.7 fl (80-100); Nucleated Red Blood Cells Absolute Auto 0.000 K/mm3 (0.0-0.012); Nucleated Red Blood Cells Perc 0.0 % (0.0-0.2); Platelet Count Result 227 k/mm3 (150-375); Red Blood Count 4.47 M/mm3 (4.2-5.4); White Blood Count 5.6 K/mm3 (4.5-10.0)
[2025-01-26 11:07] LABS: Anion Gap 9 mmol/L (4-12); Blood Urea Nitrogen 14 mg/dL (7-17); Calcium 9.0 mg/dL (8.4-10.2); Carbon Dioxide 25 mmol/L (22-30); Chloride 105 mmol/L (98-107); Estimated Glomerular Filt Rate > 60; Glucose 87 mg/dL (65-110); Potassium 3.7 mmol/L (3.4-5.0); Sodium 139 mmol/L (137-145)
[2025-01-26 11:43] LABS: Thyroid Stimulating Hormone 0.688 uIU/mL (0.465-4.680)
== END 2025-01-26 09:30 | disposition home or self-care (01) ==
LOC: ANHLAB 09:31
PROVIDERS: PCP Family Medicine; Visit Provider Physician Assistant Medical
DX: R51.9 Headache, unspecified (principal)
CPT/HCPCS: 36415; 80048; 84443; 85025